=== PATIENT | female | born 1985 | race Caucasian/White ===

== ENCOUNTER → 2016-10-20 | Outpatient (CLI) | payer OTHER ==
[~2016-10-20] MED LIST: AUGM40SS PO; CEFT500T PO; DEXA4TA PO; FIBE625T PO; PERC5TAB PO; PROAAER INH; TYLE325T5 PO
--- NOTE | 2016-10-20 11:19 | REP ---
RIGHT HAND, FOUR VIEWS: HISTORY: Injury. There is no acute fracture or dislocation. The joint spaces are normal in appearance. IMPRESSION: There is no acute fracture or dislocation. Signed by Triston Juarez MD 10/20/2016 12:03 P
== END ==
LOC: M WUC 10:46
PROVIDERS: ATTEND Physician Assistant
DX: S67.21XA Crushing injury of right hand, initial encounter (principal); X58.XXXA Exposure to other specified factors, initial encounter; Y92.89 Other specified places as the place of occurrence of the external cause; Y93.89 Activity, other specified; Y99.8 Other external cause status

== ENCOUNTER 2017-03-02 12:10 | Emergency (ER) | payer OTHER ==
[~2017-03-02] VITALS: Ht 152.4 cm; Wt 66.4 kg
[2017-03-02] MEDS ORDERED: VITA1CAP40 (12:31)
[2017-03-02] MEDS ORDERED: SERT-138 (12:31)
[2017-03-02] MEDS ORDERED: HYDR50TA70 (12:31)
[2017-03-02] MEDS ORDERED: DOXY100C37 (12:31)
[2017-03-02] MEDS ORDERED: OMEP20CA3 (12:31)
[2017-03-02] MEDS ORDERED: TRAZ50TA11 (12:31)
[2017-03-02] MEDS ORDERED: KETOROLAC 30 MG/ML VIAL (J1885) IV ONE (13:30)
[2017-03-02] MEDS ORDERED: METOCLOPRAMIDE INJ 10MG/2ML VIAL (J2765) IV ONE (13:30)
[2017-03-02] MEDS ORDERED: NS 1,000 ML IV ONE (13:30)
[2017-03-02 14:41] LABS: BASO % 0.5 % (0.0-1.0); EOS # 0.3 K/mm3 (0.0-0.50); EOS % 4.4 % (0.0-3.0); LARGE UNSTAINED CELL # 0.1 K/mm3 (0.0-0.4); LARGE UNSTAINED CELL % 1.8 % (0.0-4.0); LYMPH # 1.1 K/mm3 (1.5-4.5); MEAN CORPUSCULAR HEMOGLOBIN 30.4 pg (27.0-33.0); MEAN CORPUSCULAR HGB CONC 33.8 g/dl (32.0-36.5); MEAN CORPUSCULAR VOLUME 90.1 fl (80.0-96.0); MONO # 0.4 K/mm3 (0.0-0.8); MONO % 5.5 % (0.0-5.0); NEUTROPHILS # 5.8 K/mm3 (1.8-7.7); NEUTROPHILS % 74.7 % (36.0-66.0); PLATELET COUNT, AUTOMATED 215 k/mm3 (150-450); RED CELL DISTRIBUTION WIDTH 12.8 % (11.5-14.5); WHITE BLOOD COUNT 7.8 K/mm3 (4.0-10.0)
[2017-03-02 15:12] LABS: ANION GAP 7 MEQ/L (8-16); BLOOD UREA NITROGEN 9 MG/DL (7-18); CALCIUM LEVEL 8.8 MG/DL (8.5-10.1); CARBON DIOXIDE LEVEL 26 MEQ/L (21-32); CHLORIDE LEVEL 109 MEQ/L (98-107); CREATININE FOR GFR 0.78 MG/DL (0.55-1.02); GLOMERULAR FILTRATION RATE > 60.0 (>60); GLUCOSE, FASTING 86 MG/DL (70-105); POTASSIUM SERUM 3.8 MEQ/L (3.5-5.1); SODIUM LEVEL 142 MEQ/L (136-145)
[2017-03-02 15:28] LABS: ERYTHROCYTE SEDIMENTATION RATE 19 mm/hr (0-20)
[2017-03-02 15:34] VITALS: BP 104/67
== END 2017-03-02 15:37 | disposition home or self-care (01) ==
LOC: M ED 12:10
DX: R51 Headache (principal); B34.9 Viral infection, unspecified; F99 Mental disorder, not otherwise specified; Z79.899 Other long term (current) drug therapy
CPT/HCPCS: 80048; 81001; 81025; 85025; 85652; 86140; 96374; 96375; 99283; J1885; J2765

== ENCOUNTER 2018-04-04 00:06 | Emergency (ER) | payer OTHER ==
[2018-04-04] MEDS: GI COCKTAIL 50ML BTL(HYOSCYAMINE/MAALOX/LIDOCAINE VISCOUS)(1:3:1) PO (00:37)
[2018-04-04] MEDS: methylPREDNISolone INJ 125 MG/2 ML VIAL (J2930) IM (00:40)
[2018-04-04] MEDS: IPRATROPIUM 0.5MG/ALBUTEROL 2.5MG INH SOL UD 3ML (DUONEB)(J7620) NEB (01:37)
== END 2018-04-04 01:52 | disposition home or self-care (01) ==
LOC: M ED 00:06
DX: J40 Bronchitis, not specified as acute or chronic (principal); J06.9 Acute upper respiratory infection, unspecified; J45.909 Unspecified asthma, uncomplicated; F31.9 Bipolar disorder, unspecified; K21.9 Gastro-esophageal reflux disease without esophagitis; Z79.899 Other long term (current) drug therapy
CPT/HCPCS: J2930

== ENCOUNTER 2018-09-28 13:36 | Day surgery (SDC) | payer BC ==
[~2018-09-28] VITALS: Ht 152.4 cm; Wt 69.4 kg
[~2018-09-28 13:36] MED LIST changes: +DICY10CA13 PO; +DIVA250T67 PO; +DOXY100C37; +HYDR50TA70 PO; +NS 1,000 ML IV ONE; +OMEP20CA3; +PRED20TA PO; +PROAAER10 INH; +SERT-138 PO; +TRAZ-160; +VITA50005
[2018-09-28] MEDS ORDERED: fentaNYL 100 MCG/2 ML INJECTION (J3010) As Ordered ONE (15:49)
[2018-09-28] MEDS ORDERED: LIDOCAINE 2% INJ 100 MG/5 ML SDV (FOR ANES.) As Ordered ONE (16:35)
[2018-09-28] MEDS ORDERED: MIDAZOLAM INJ 2 MG/2 ML VIAL (J2250) As Ordered ONE (16:36)
[2018-09-28] MEDS ORDERED: PROPOFOL 200 MG/20 ML VIAL As Ordered ONE (16:37)
--- NOTE | 2018-09-28 16:49 | ROOR ---
Patient Name: Vika Kaplan Procedure Date: 09/28/2018 4:33 PM Date of : 1985 Age: 32 Room: [facility] Gender: Female Note Status: Finalized Procedure: Upper GI endoscopy Indications: Failure to respond to medical treatment, Unexplained chest pain Providers: Ramiro CEDEÑO MD Referring MD: ZAC GUTIERREZ MD Requesting Provider: Medicines: Monitored Anesthesia Care Complications: No immediate complications. Procedure: Pre-Anesthesia Assessment: - The heart rate, respiratory rate, oxygen saturations, blood pressure, adequacy of pulmonary ventilation, and response to care were monitored throughout the procedure. The Endoscope was introduced through the mouth, and advanced to the second part of duodenum. The upper GI endoscopy was accomplished without difficulty. The patient tolerated the procedure well. Findings: Small Hiatal Hernia. The examined esophagus was normal. The entire examined stomach was normal. The examined duodenum was normal. Several biopsies were obtained in the proximal esophagus, in the mid esophagus and in the distal esophagus with cold forceps for evaluation of eosinophilic esophagitis. Impression: - Small Hiatal Hernia. - Normal stomach. - Normal esophagus. - Normal examined duodenum. - Several biopsies were obtained in the proximal esophagus, in the mid esophagus and in the distal esophagus. Recommendation: - Telephone endoscopist for pathology results in 2 weeks. - Observe patient's clinical course. Ramiro Cedeño MD Ramiro CEDEÑO MD 09/28/2018 4:49:12 PM This report has been signed electronically. Number of Addenda: 0 Note Initiated On: 09/28/2018 4:33 PM Estimated Blood Loss: Estimated blood loss: none.
[2018-09-28 17:27] VITALS: BP 125/81
== END 2018-09-28 17:29 | disposition home or self-care (01) ==
LOC: M OPP 13:36
PROVIDERS: ATTEND Internal Medicine Gastroenterology
DX: R07.9 Chest pain, unspecified (principal); K21.9 Gastro-esophageal reflux disease without esophagitis; K44.9 Diaphragmatic hernia without obstruction or gangrene; G43.909 Migraine, unspecified, not intractable, without status migrainosus; M79.7 Fibromyalgia; K58.9 Irritable bowel syndrome, unspecified; Z79.899 Other long term (current) drug therapy; Z83.3 Family history of diabetes mellitus; Z82.5 Family history of asthma and other chronic lower respiratory diseases
CPT/HCPCS: 43239; 88305; J2250; J3010

== ENCOUNTER 2019-04-27 21:09 | Emergency (ER) | payer BC ==
[~2019-04-27] VITALS: Ht 152.4 cm; Wt 67.7 kg
[~2019-04-27 21:09] MED LIST changes: +AMOX400S53 PO; -AUGM40SS PO; -NS 1,000 ML IV ONE; -OMEP20CA3; +OMEP20CA4; -TRAZ-160; +TRAZ-252
[2019-04-27 21:47] LABS: BASO # 0.1 10^3/uL (0.0-0.2); BASO % 0.7 % (0.0-1.0); EOS # 0.3 10^3/uL (0.0-0.5); EOS % 4.1 % (0.0-3.0); HEMOGLOBIN 14.6 g/dl (12.0-15.5); LYMPH # 2.2 10^3/uL (1.5-5.0); LYMPH % 30.4 % (24.0-44.0); MEAN CORPUSCULAR HEMOGLOBIN 30.7 pg (27.0-33.0); MEAN CORPUSCULAR HGB CONC 33.2 g/dl (32.0-36.5); MEAN CORPUSCULAR VOLUME 92.4 fl (80.0-96.0); MONO # 0.7 10^3/uL (0.0-0.8); MONO % 10.4 % (0.0-5.0); NEUTROPHILS # 3.9 10^3/uL (1.5-8.5); NEUTROPHILS % 54.1 % (36.0-66.0); PLATELET COUNT, AUTOMATED 263 10^3/uL (150-450); RED BLOOD COUNT 4.76 10^6/uL (4.00-5.40); WHITE BLOOD COUNT 7.1 10^3/uL (4.0-10.0)
[2019-04-27 22:10] LABS: ALT/SGPT 16 U/L (12-78); BILIRUBIN,DIRECT < 0.1 MG/DL (0.0-0.2); BILIRUBIN,TOTAL 0.2 MG/DL (0.2-1.0); BLOOD UREA NITROGEN 17 MG/DL (7-18); CALCIUM LEVEL 9.4 MG/DL (8.5-10.1); CARBON DIOXIDE LEVEL 28 MEQ/L (21-32); CHLORIDE LEVEL 106 MEQ/L (98-107); CREATININE FOR GFR 0.99 MG/DL (0.55-1.30); GLOMERULAR FILTRATION RATE > 60.0 (>60); GLUCOSE, FASTING 86 MG/DL (70-100); LIPASE 133 U/L (73-393); POTASSIUM SERUM 3.6 MEQ/L (3.5-5.1); SODIUM LEVEL 141 MEQ/L (136-145); TOTAL PROTEIN 8.1 GM/DL (6.4-8.2)
[2019-04-27] MEDS ORDERED: ISOVUE-370 76% 100ML VIAL (Q9967) As Ordered ONE (22:12)
[2019-04-27] MEDS ORDERED: KETOROLAC 30 MG/ML VIAL (J1885) IV ONE (22:15)
[2019-04-27] MEDS ORDERED: NS 1,000 ML IV ONE (22:15)
[2019-04-27] MEDS ORDERED: ONDANSETRON 4MG/2ML VIAL (J2405) IV ONE (22:15)
[2019-04-28] MEDS ORDERED: METOCLOPRAMIDE INJ 10MG/2ML VIAL (J2765) IV ONE
[2019-04-28] MEDS ORDERED: MORPHINE 4 MG/ML 1ML VIAL/SYRINGE (J2270) IV ONE
--- NOTE | 2019-04-28 00:15 | REPVR ---
EXAM: CT Abdomen and Pelvis With Contrast EXAM DATE/TIME: 04/27/2019 10:31 PM CLINICAL HISTORY: 33 years old, female; Abdominal pain; Localized; Lower; Additional info: Lower abd pain TECHNIQUE: Imaging protocol: Computed tomography of the abdomen and pelvis with intravenous contrast. Axial, coronal and sagittal reformatted images were created and reviewed. Radiation optimization: All CT scans at this facility use at least one of these dose optimization techniques: automated exposure control; mA and/or kV adjustment per patient size (includes targeted exams where dose is matched to clinical indication); or iterative reconstruction. Contrast material: ISOVUE 370; Contrast volume: 100 ml; Contrast route: IV; COMPARISON: No relevant prior studies available. FINDINGS: Liver: Unremarkable. Gallbladder and bile ducts: No radiodense gallstones. No biliary ductal dilatation. Pancreas: Unremarkable. Spleen: Unremarkable. Adrenals: Unremarkable. Kidneys and ureters: No mass. No radiodense calculi. No hydronephrosis. Stomach and bowel: No bowel wall thickening. No obstruction. No pneumatosis. Appendix: Normal. Intraperitoneal space: No free fluid. No organized fluid collection. No free air. Vasculature: Unremarkable. No aneurysm. Lymph nodes: No pathologically enlarged lymph nodes. Bladder: Unremarkable. Reproductive: Unremarkable. Bones/joints: No acute osseous abnormality. Soft tissues: Unremarkable. IMPRESSION: No CT evidence of acute intra-abdominal or pelvic pathology. Electronically signed by: Chaparro Sanchez On 04/28/2019 00:14:19 AM
[2019-04-28] MEDS ORDERED: HYOS0.1258 PO (00:37)
[2019-04-28] MEDS ORDERED: ONDA4TAB6 PO (00:37)
[2019-04-28 01:01] VITALS: BP 110/63
== END 2019-04-28 01:16 | disposition home or self-care (01) ==
LOC: M ED 21:09
DX: R10.31 Right lower quadrant pain (principal); R10.32 Left lower quadrant pain; R11.2 Nausea with vomiting, unspecified; R51 Headache; J45.909 Unspecified asthma, uncomplicated; K58.9 Irritable bowel syndrome, unspecified; F41.9 Anxiety disorder, unspecified; Z83.79 Family history of other diseases of the digestive system
CPT/HCPCS: 36415; 74177; 80048; 80076; 81001; 83690; 84702; 85025; 96361; 96374; 96375; 99284; J1885; J2270; J2405; J2765; Q9967

== ENCOUNTER → 2019-05-08 | Outpatient (REF) | payer BC ==
[~2019-05-08] MED LIST changes: +HYOS0.1258 PO; +ONDA4TAB6 PO; +REGL5TAB2 PO
== END ==
LOC: M LAB REF 13:30
PROVIDERS: ATTEND Internal Medicine
DX: A09 Infectious gastroenteritis and colitis, unspecified (principal)

== ENCOUNTER 2019-05-11 20:02 | Emergency (ER) | payer BC ==
[~2019-05-11] VITALS: Ht 152.4 cm; Wt 68.2 kg
[~2019-05-11 20:02] MED LIST changes: -REGL5TAB2 PO
[2019-05-11 20:37] LABS: BASO % 0.4 % (0.0-1.0); EOS # 0.1 10^3/uL (0.0-0.5); EOS % 1.4 % (0.0-3.0); HEMATOCRIT 44.1 % (36.0-47.0); HEMOGLOBIN 14.8 g/dl (12.0-15.5); LYMPH # 1.3 10^3/uL (1.5-5.0); LYMPH % 13.4 % (24.0-44.0); MEAN CORPUSCULAR HEMOGLOBIN 31.2 pg (27.0-33.0); MEAN CORPUSCULAR HGB CONC 33.6 g/dl (32.0-36.5); MONO # 0.8 10^3/uL (0.0-0.8); MONO % 8.2 % (0.0-5.0); NEUTROPHILS # 7.5 10^3/uL (1.5-8.5); NEUTROPHILS % 76.3 % (36.0-66.0); PLATELET COUNT, AUTOMATED 260 10^3/uL (150-450); RED BLOOD COUNT 4.74 10^6/uL (4.00-5.40); WHITE BLOOD COUNT 9.8 10^3/uL (4.0-10.0)
[2019-05-11 21:13] LABS: ALBUMIN 4.1 GM/DL (3.2-5.2); ALT/SGPT 17 U/L (12-78); BILIRUBIN,DIRECT 0.1 MG/DL (0.0-0.2); BILIRUBIN,TOTAL 0.4 MG/DL (0.2-1.0); BLOOD UREA NITROGEN 14 MG/DL (7-18); CALCIUM LEVEL 9.8 MG/DL (8.5-10.1); CARBON DIOXIDE LEVEL 25 MEQ/L (21-32); CHLORIDE LEVEL 108 MEQ/L (98-107); CREATININE FOR GFR 0.87 MG/DL (0.55-1.30); GLOMERULAR FILTRATION RATE > 60.0 (>60); GLUCOSE, FASTING 90 MG/DL (70-100); LIPASE 113 U/L (73-393); SODIUM LEVEL 140 MEQ/L (136-145); TOTAL PROTEIN 7.7 GM/DL (6.4-8.2)
[2019-05-11] MEDS ORDERED: DICYCLOMINE 10 MG CAP PO ONE (21:45)
[2019-05-11] MEDS ORDERED: METOCLOPRAMIDE INJ 10MG/2ML VIAL (J2765) IV ONE (21:45)
[2019-05-11] MEDS ORDERED: diphenhydrAMINE INJ 50MG/ML VIAL (J1200) IV ONE (21:45)
[2019-05-11] MEDS ORDERED: NS 1,000 ML IV ONE (21:45)
[2019-05-11] MEDS ORDERED: KETOROLAC 30 MG/ML VIAL (J1885) IV ONE (21:45)
[2019-05-11] MEDS ORDERED: REGL5TAB2 PO (23:18)
[2019-05-11] MEDS ORDERED: DICY10CA13 PO (23:18)
[2019-05-11 23:25] VITALS: BP 133/81
== END 2019-05-11 23:28 | disposition home or self-care (01) ==
LOC: M ED 20:02
DX: K58.9 Irritable bowel syndrome, unspecified (principal); R51 Headache; J45.909 Unspecified asthma, uncomplicated; F41.9 Anxiety disorder, unspecified; Z79.899 Other long term (current) drug therapy
CPT/HCPCS: 80048; 80076; 81001; 83690; 85025; 96361; 96374; 96375; 99284; J1200; J1885; J2765

== ENCOUNTER → 2019-07-04 | Outpatient (CLI) | payer BC ==
[~2019-07-04] MED LIST changes: +REGL5TAB2 PO
--- NOTE | 2019-07-09 10:11 | REP ---
KUB ABDOMEN AND PELVIS: KUB film of the abdomen and pelvis is performed 5 days following ingestion of SITZMARKS capsule. There are five remaining ring markers in the pelvis. This is compatible with grossly normal colonic transit. Bowel gas pattern is normal. There are also a several tiny phleboliths in the pelvis. IMPRESSION: Five ring Sitz markers remain in the pelvis. This is compatible with grossly normal colonic transit. Electronically Signed by Juancho Brooks MD 07/09/2019 10:12 A
== END ==
LOC: M RAD 12:16
PROVIDERS: ATTEND Internal Medicine Gastroenterology
DX: K58.2 Mixed irritable bowel syndrome (principal)

== ENCOUNTER → 2019-09-11 | Outpatient (REF) | payer BC ==
[~2019-09-11] MED LIST changes: +CICL8KIT3 EX; +CVS50CAP PO; +OMEP1CAP73; -OMEP20CA4
== END ==
LOC: M SFHCWAGY 17:23
PROVIDERS: ATTEND Nurse Practitioner Women's Health
DX: Z12.4 Encounter for screening for malignant neoplasm of cervix (principal)

== ENCOUNTER 2019-09-19 07:29 | Day surgery (SDC) | payer BC ==
[~2019-09-19] VITALS: Ht 152.4 cm; Wt 69.4 kg
[~2019-09-19 07:29] MED LIST changes: +NS 1,000 ML IV ONE
[2019-09-19] MEDS ORDERED: propofoL 200 MG/20 ML VIAL As Ordered ONE (09:20)
[2019-09-19] MEDS ORDERED: LIDOCAINE 2% INJ 100 MG/5 ML SDV (FOR ANES.) As Ordered ONE (09:20)
--- NOTE | 2019-09-19 09:25 | ROOR ---
Patient Name: Vika Kaplan Procedure Date: 09/19/2019 8:59 AM Date of : 1985 Age: 33 Room: [facility] Gender: Female Note Status: Finalized Procedure: Colonoscopy Indications: Generalized abdominal pain, Mixed irritable bowel syndrome, Change in bowel habits Providers: Ramiro CEDEÑO MD Referring MD: ZAC GUTIERREZ MD Requesting Provider: Medicines: Monitored Anesthesia Care Complications: No immediate complications. Procedure: Pre-Anesthesia Assessment: - The heart rate, respiratory rate, oxygen saturations, blood pressure, adequacy of pulmonary ventilation, and response to care were monitored throughout the procedure. The Colonoscope was introduced through the anus and advanced to the terminal ileum, with identification of the appendiceal orifice and IC valve. The colonoscopy was performed without difficulty. The patient tolerated the procedure well. The quality of the bowel preparation was adequate and fair. Findings: The digital rectal exam findings include decreased sphincter tone. A 4 mm polyp was found in the distal sigmoid colon. The polyp was sessile. The polyp was removed with a cold snare. Resection and retrieval were complete. To prevent bleeding after the polypectomy, one hemostatic clip was successfully placed. The exam was otherwise normal throughout the examined colon. The terminal ileum appeared normal. Impression: - Preparation of the colon was fair. - Decreased sphincter tone found on digital rectal exam. - One 4 mm polyp in the distal sigmoid colon, removed with a cold snare. Resected and retrieved. Clip was placed. - The colon is otherwise normal. - The examined portion of the ileum is normal. Recommendation: - Continue present medications. - Use fiber, for example Citrucel, Fibercon, Konsyl or Metamucil. Ramiro Cedeño MD Ramiro CEDEÑO MD 09/19/2019 9:24:38 AM Electronically signed by Ramiro CEDEÑO MD Number of Addenda: 0 Note Initiated On: 09/19/2019 8:59 AM Estimated Blood Loss: Estimated blood loss: none.
[2019-09-19 09:40] VITALS: BP 93/50
== END 2019-09-19 09:50 | disposition home or self-care (01) ==
LOC: M OPP 07:29
PROVIDERS: ATTEND Internal Medicine Gastroenterology
DX: R10.84 Generalized abdominal pain (principal); K58.2 Mixed irritable bowel syndrome; R19.4 Change in bowel habit; K62.89 Other specified diseases of anus and rectum; K63.5 Polyp of colon; G47.9 Sleep disorder, unspecified; Z87.898 Personal history of other specified conditions; R14.0 Abdominal distension (gaseous); R19.7 Diarrhea, unspecified; R12 Heartburn; M54.2 Cervicalgia; M79.7 Fibromyalgia; R11.2 Nausea with vomiting, unspecified; F41.9 Anxiety disorder, unspecified; F32.9 Major depressive disorder, single episode, unspecified; G43.909 Migraine, unspecified, not intractable, without status migrainosus; J45.909 Unspecified asthma, uncomplicated; R06.83 Snoring; Z79.899 Other long term (current) drug therapy; Z88.8 Allergy status to other drugs, medicaments and biological substances

== ENCOUNTER → 2019-10-23 | Outpatient (CLI) | payer BC ==
[~2019-10-23] MED LIST changes: -NS 1,000 ML IV ONE
--- NOTE | 2019-10-25 12:48 | SLEEPCENT ---
DATE OF PROCEDURE: 10/23/2019 ORDERED BY: ZE Butt Nocturnal polysomnography was performed for evaluation of sleep physiology in this patient with a history of excessive somnolence, snoring, morning headaches and nonrestorative sleep. 7 hours and 48 minutes of data were reviewed. There were 423.5 minutes of sleep identified. Sleep latency was mildly prolonged at 14 minutes. REM latency was mildly prolonged at 139 minutes. Sleep architecture was good with four REM cycles. Overall sleep efficiency was 95.4%. The electrocardiogram showed a sinus rhythm with an average heart rate of 60 beats per minute. EEG showed alpha intrusion into non-REM stages. No focal events were seen. There were only 23 respiratory events identified of 10 seconds in duration or greater for an apnea-hypopnea index within normal limits of 3.3. The events that were seen were more frequent in the supine posture. Snoring was noted over much of the study. The respiratory related arousals occurred 4.4 times per hour. There were no significant oxygen desaturations and no frequent arousals from limb movements. IMPRESSION: Normal nocturnal polysomnography with snoring. RECOMMENDATION: Sleep position retraining for avoidance of the supine posture may help reduce sleep fragmentation from the snoring problem.
== END ==
LOC: M SLEEP 19:34
PROVIDERS: ATTEND Nurse Practitioner Family
DX: R06.83 Snoring (principal)

== ENCOUNTER → 2019-10-25 | Outpatient (CLI) | payer BC ==
--- NOTE | 2019-10-25 14:35 | REP ---
REASON: Menorrhagia. COMPARISON: None. Transvesical and transvaginal imaging was obtained. Patient has undergone endometrial ablation 11/08/2019. The uterus measures 7.8 x 3.3 x 3.8 cm. The parenchymal echo pattern is within normal limits. The endometrial echo complex measures 9 mm in thickness and has an unremarkable appearance. The right ovary measures 2.9 x 1.8 x 2.1 cm and is within normal limits with an RI of 0.53. The left ovary measures 2.7 x 1.7 x 2.6 cm and is within normal limits with an RI of 0.67. There is a small amount of fluid in the endocervical canal. Urinary bladder measures 7 x 5 x 2 cm. IMPRESSION: Pelvic ultrasonography is within normal limits.
== END ==
LOC: M WHC 10:35
PROVIDERS: ATTEND Specialist
DX: N92.0 Excessive and frequent menstruation with regular cycle (principal)

== ENCOUNTER → 2019-12-30 | Outpatient (CLI) | payer BC ==
[~2019-12-30] MED LIST changes: +AMIT50TA PO; +IBUP-1022 PO; +OXYC1TAB23 PO
== END ==
LOC: M LABSMTC 10:20
PROVIDERS: ATTEND Anesthesiology
DX: Z01.818 Encounter for other preprocedural examination (principal); Z11.59 Encounter for screening for other viral diseases
CPT/HCPCS: C9803; U0002

== ENCOUNTER 2020-01-01 08:50 | Day surgery (SDC) | payer BC ==
[~2020-01-01] VITALS: Ht 152.4 cm; Wt 71.2 kg
[~2020-01-01 08:50] MED LIST changes: -AMIT50TA PO; -IBUP-1022 PO; +LR 1,000 ML IV ONE; -OXYC1TAB23 PO
[2020-01-01] MEDS ORDERED: AMIT50TA PO (09:14)
[2020-01-01 09:19] LABS: HEMATOCRIT 45.8 % (36.0-47.0); MEAN CORPUSCULAR HEMOGLOBIN 30.1 pg (27.0-33.0); MEAN CORPUSCULAR HGB CONC 32.8 g/dl (32.0-36.5); PLATELET COUNT, AUTOMATED 248 10^3/uL (150-450); RED BLOOD COUNT 4.98 10^6/uL (4.00-5.40); WHITE BLOOD COUNT 5.7 10^3/uL (4.0-10.0)
[2020-01-01] MEDS ORDERED: fentaNYL 250 MCG/5 ML INJECTION (J3010) As Ordered ONE (09:26)
[2020-01-01] MEDS ORDERED: MIDAZOLAM INJ 2MG/2ML VIAL (J2250 PER 1MG) As Ordered ONE (09:27)
[2020-01-01] MEDS ORDERED: propofoL 200 MG/20 ML VIAL As Ordered ONE (09:27)
[2020-01-01] MEDS ORDERED: LIDOCAINE 2% 100MG/5ML SDV (FOR ANES.) As Ordered ONE (09:27)
[2020-01-01] MEDS ORDERED: KETOROLAC 60 MG/2 ML VIAL As Ordered ONE (09:27)
[2020-01-01] MEDS ORDERED: dexameTHASONE 4 MG/ML 1ML VIAL (J1100 PER 1MG) As Ordered ONE (09:27)
[2020-01-01] MEDS ORDERED: ONDANSETRON 4MG/2ML VIAL As Ordered ONE (09:27)
[2020-01-01] MEDS ORDERED: ACETAMINOPHEN 1000MG 100ML IV BTL (OFIRMEV) (J0131 PER 10MG) As Ordered ONE (09:32)
[2020-01-01] MEDS ORDERED: oxyCODONE 5MG TAB PO PRN (11:30)
[2020-01-01] MEDS ORDERED: ONDANSETRON 4MG/2ML VIAL IV PRN (11:30)
[2020-01-01] MEDS ORDERED: PERCOCET 5MG/325MG TAB PO PRN (11:30)
[2020-01-01] MEDS ORDERED: fentaNYL 100 MCG/2 ML INJECTION (J3010) IV PRN (11:30)
[2020-01-01] MEDS ORDERED: LR 1,000 ML IV SCH (11:30)
[2020-01-01] MEDS ORDERED: OXYC1TAB23 PO (12:43)
[2020-01-01] MEDS ORDERED: IBUP-1022 PO (12:44)
[2020-01-01 12:57] VITALS: BP 115/78
--- NOTE | 2020-01-03 21:48 | RO ---
DATE OF PROCEDURE: 01/01/2020 PREPROCEDURE DIAGNOSIS: Menorrhagia. POSTPROCEDURE DIAGNOSIS: Menorrhagia. PROCEDURE: Hysteroscopy, dilation and curettage, NovaSure endometrial ablation. SURGEON: Triston Gutierrez MD PROFILING MACHINE SET UP OPERATOR: ANESTHESIA: General endotracheal. ESTIMATED BLOOD LOSS: 10 mL. URINE OUTPUT: 100 mL. FINDINGS: Normal appearing endometrial cavity. DESCRIPTION OF PROCEDURE: The patient was taken to the operating room where general endotracheal anesthesia was induced. She was prepped and draped in a sterile fashion in the dorsal lithotomy position. The bladder was emptied with a catheter. The anterior lip of the cervix was grasped with a tenaculum. Cervix was dilated with tapered dilators. Diagnostic hysteroscope using normal saline as a distention medium was placed through the internal os. Visualization of the endometrial cavity revealed the findings noted above. The hysteroscope was removed. Sharp curettage was performed. Specimen was sent for pathology. The NovaSure device was assembled and found to be in working order. Endometrial cavity length 4.0 cm. The NovaSure device was inserted. The cavity width was calculated at 2.6 cm. Total power setting was 57 naranjo. Successful cavity assessment was performed. Coagulation was initiated. Total coagulation time was 1 minute 16 seconds. The device was removed. The hysteroscope was placed back in the endometrium. An excellent coagulation effect was noted throughout the endometrium. There was no evidence of injury to the uterus. Sponge and instrument counts were correct.
== END 2020-01-01 13:00 | disposition home or self-care (01) ==
LOC: M SDC 08:50
PROVIDERS: ATTEND Specialist
DX: N85.00 Endometrial hyperplasia, unspecified (principal); F41.9 Anxiety disorder, unspecified; K58.9 Irritable bowel syndrome, unspecified; M54.5 Low back pain; Z86.61 Personal history of infections of the central nervous system; M79.7 Fibromyalgia; F32.9 Major depressive disorder, single episode, unspecified; G43.909 Migraine, unspecified, not intractable, without status migrainosus; J45.909 Unspecified asthma, uncomplicated; R06.83 Snoring; Z79.899 Other long term (current) drug therapy; Z88.8 Allergy status to other drugs, medicaments and biological substances; Z11.59 Encounter for screening for other viral diseases
CPT/HCPCS: 36415; 58563; 81025; 85027; 88305; J0131; J1100; J1885; J2250; J2405; J3010

== ENCOUNTER → 2020-08-26 | Outpatient (CLI) | payer BC ==
[~2020-08-26] MED LIST changes: +ACET-838 PO; +AMIT50TA PO; +CYMB60CA3 PO; +FAMO20TA PO; +IBUP-1022 PO; -LR 1,000 ML IV ONE; +OMEP1CAP73 PO; +OXYC1TAB23 PO
--- NOTE | 2020-08-27 19:14 | ECGEPIP ---
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
== END ==
LOC: M EKG 08:58
PROVIDERS: ATTEND Anesthesiology
DX: Z01.818 Encounter for other preprocedural examination (principal)

== ENCOUNTER → 2020-08-27 | Outpatient (CLI) | payer BC | LOC: M LABSMTC 10:14 | PROVIDERS: ATTEND Anesthesiology | DX: Z01.812 Encounter for preprocedural laboratory examination (principal); Z20.822 Contact with and (suspected) exposure to COVID-19 ==

== ENCOUNTER 2020-09-01 07:32 | Day surgery (SDC) | payer BC ==
[~2020-09-01] VITALS: Ht 152.4 cm; Wt 78.9 kg
[~2020-09-01 07:32] MED LIST changes: +LR 1,000 ML IV ONE
--- OUTSIDE RECORDS SUMMARY | 2020-09-01 07:36 | CCD | Continuity of Care Document ---
Author Author Vika ALAS DPDiana Organization Unknown Address [address] [place] [address], [facility] [address] [place] [address] Phone [phone] Care Team Providers Care Lead Etl Developer Name Role Phone Shukri Mejia M.D.M [phone] Problems Active Problems Provider Date Tinea pedis Andrei lAas DPM Onset: 07/14/2019 Onychomycosis Andrei Alas DPM Onset: 08/08/2019 Social History Type Date Description Comments Sex Unknown ETOH Use Rarely consumes alcohol Tobacco Use Start: Unknown Patient has never smoked Allergies, Adverse Reactions, Alerts Active Allergies Reaction Severity Comments Date Terbinafine rash 07/29/2019 Inactive Allergies NKDA 07/04/2019 Medications Active Medications SIG Qnty Indications Ordering Provide r Date Jublia 10% Solution apply to affected toenails daily 8ml Andrei Alas DPM 02/20/2020 Benadryl Allergy 25mg Tablets 1 tablet by mouth every 6 hours as needed for itching 30tabs Andrei Alas DPM 07/29/2019 Ciclopirox 8% Solution apply to affected nail(s) daily 6.6units Andrei Alas DPM 07/29/2019 Augmented Betamethasone Dipropionate 0.05% Gel apply between toes daily 50units Andrei Alas DPM 07/04/2019 Ketoconazole Unknown Albuterol Sulfate HFA Unknown Immunizations Description No Information Available Vital Signs Date Vital Result Comment 07/04/2019 1:13pm Height 59 inches 4'11" Weight 154.00 lb BP Systolic 118 mmHg BP Diastolic 78 mmHg Heart Rate 78 /min BMI (Body Mass Index) 31.1 kg/m2 Results Description No Information Available Procedures Description No Information Available Medical Devices Description No Information Available Encounters Type Date Location Provider Dx Diagnosis Office Visit 05/22/2020 10:00a [facility] Andrei Alas DPM B35.1 Tinea unguium Assessments Date Code Description Provider 05/22/2020 B35.1 Tinea unguium Andrei Alas DPM Plan of Treatment Future Appointment(s):* 11/23/2020 10:00 am - Andrei Alas DPM at [facility] Functional Status Description No Information Available Mental Status Description No Information Available Referrals Description No Information Available
--- OUTSIDE RECORDS SUMMARY | 2020-09-01 07:37 | CCD | Continuity of Care Document ---
Author Author Vika MEJIA M.D. Organization Unknown Address [address] [place] [address] Phone [phone] Problems Active Problems Provider Date Anxiety Shukri Mejia M.D. Onset: 6 Obesity Shukri Mejia M.D. Onset: 8 Social History Type Date Description Comments Sex Unknown Cigarette Use Denies Cigarette Smoking ETOH Use Consumes 1-2 beers per week Recreational Drug Use Denies Drug Use Tobacco Use Start: Unknown Patient has never smoked Allergies, Adverse Reactions, Alerts Description No Known Drug Allergies Medications Active Medications SIG Qnty Indications Ordering Provide r Date Famotidine 20mg Tablets 1 by mouth at at bedtime 90taShukri Nelson M.D. 05/20/20 20 [address]ep[address]ole Sodium [address] Take 1 Tablet By Mouth Every Day 90tabs Shukri Mejia M.D . 03/10/2020 Duloxetine HCL 60mg Caps DR Part 1 by mouth every day 90Shukri Bolaños M.D. 03/09/20 20 Albuterol Sulfate HFA 108(90Base) mcg/Act Aerosol Inhale 2 Puffs By Mouth Every 4 Hours as Needed For Sh ortness Of Breath 42.5units Shukri Mejia M.D. 06/28/2019 Docusate Sodium 100mg Capsules as directed at Ramiro Duarte M.D. History Medications Dexilant 60mg Capsules DR 1 by mouth every day Shukri Singh M.D. 03/09/20 20 - 03/10/2020 Immunizations CPT Code Status Date Vaccine Lot # [id number] Refused 07/22/2019 Influenza Virus Vaccine, Quadrivalent, Slit Virus, Im Use 3Y & Up [id number] Refused 06/10/2016 Influenza Virus Vaccine, Quadrivalent, Slit Virus, Im Use 3Y & Up Vital Signs Date Vital Result Comment 05/11/2020 11:16am BP Systolic 120 mmHg BP Diastolic 80 mmHg Body Temperature 98.6 F Heart Rate 76 /min Respiratory Rate 12 /min Height 59 inches 4'11" Weight 167.00 lb [place] Body Weight 100 lb BMI (Body Mass Index) 33.7 kg/m2 O2 % BldC Oximetry 97 % 03/09/2020 11:18am BP Systolic 120 mmHg BP Diastolic 60 mmHg Body Temperature 97.5 F Heart Rate 80 /min Respiratory Rate 16 /min Height 59 inches 4'11" Weight 159.00 lb [place] Body Weight 100 lb BMI (Body Mass Index) 32.1 kg/m2 O2 % BldC Oximetry 98 % Results Description No Information Available Procedures Description No Information Available Medical Devices Description No Information Available Encounters Type Date Location Provider Dx Diagnosis Office Visit 07/21/2020 1:00p [facility] Shukri Mejia M. D. R05 Cough Office Visit 05/11/2020 11:00a [facility] Shukri Mejia M. D. K21.9 Gastro-esophageal reflux disease without esophagitis G43.909 Migraine, unsp, not intracta ble, without status migrainosus M79.7 Fibromyalgia Office Visit 03/09/2020 11:00a [facility] Shukri Mejia M. D. F41.9 Anxiety disorder, unspecified K21.9 Gastro-esophageal reflux dis ease without esophagitis Office Visit 01/27/2020 11:30a [facility] Shukri Mejia M. D. G43.909 Migraine, unsp, not intractable, without status migrainosus M79.7 Fibromyalgia Assessments Date Code Description Provider 07/21/2020 R05 Cough Shukri Mejia M.D. 05/11/2020 K21.9 Gastro-esophageal reflux disease without esophagitis Shukri Mejia M.D. 05/11/2020 G43.909 Migraine, unspecified, not intra ctable, without status migra Shukri Mjeia M.D. 05/11/2020 M79.7 Fibromyalgia Shukri Mejia M.D. 03/09/2020 F41.9 Anxiety disorder, unspecified Mi Shukri pena M.D. 03/09/2020 K21.9 Gastro-esophageal reflux disease without esophagitis Shukri Mejia M.D. 01/27/2020 G43.909 Migraine, unspecified, not intra ctable, without status migra Shukri Mejia M.D. 01/27/2020 M79.7 Fibromyalgia Shukri Mejia M.D. Plan of Treatment Future Appointment(s):* 11/09/2020 10:20 am - Shukri Mejia M.D. at [facility] Functional Status Description No Information Available Mental Status Description No Information Available Referrals Refer to Reason for Referral Status Appt Date [facility] chronic cough, eval and rx Cr eated [address] [facility] [address] [place] [address] [phone] Clarissa Rdz migraines- eval and rx Sent 05/26/[address] [place] [address] [facility] [address] [address] [phone]
--- OUTSIDE RECORDS SUMMARY | 2020-09-01 07:37 | CCD | Continuity of Care Document ---
Author Author Vika BOWDEN Organization Unknown Address [address] [place] [address] Phone [phone] Care Team Providers Care Hazard Mitigation Officer Name Role Phone Shukri Mejia M.D. AUTM [phone] Problems Active Problems Provider Date Chronic intractable migraine without aura Clarissa Rdz M.D. Onset: 05/26/2020 Chronic tension-type headache Clarissa Rdz M.D. Onset: Neck pain Clarissa Rdz M.D. Onset: 05/26/2020 Spondylolysis of cervical spine Clarisas Rdz M.D. Onset: 1 Low back pain Clarissa Rdz M.D. Onset: 05/26/2020 Spondylolysis Clarissa Rdz M.D. Onset: 05/26/2020 Disorders of initiating and maintaining sleep Zoya Bowden Onset: 05/26/2020 Skin sensation disturbance Clarissa Rdz M.D. Onset: 2019 Abnormal reflex Clarissa Rdz M.D. Onset: 05/26/2020 Social History Type Date Description Comments Sex Unknown Tobacco Use Start: Unknown Patient has never smoked Allergies, Adverse Reactions, Alerts Description No Known Drug Allergies Medications Active Medications SIG Qnty Indications Ordering Provide r Date Topiramate 50mg Tablets Take 1/2 Tablet By Mouth AT Bedtime For 1 Week Then 1 Tablet AT Bedtime For 1 Week Then 2 Tablets AT Bedtime For Final Dose 159tabs Clarissa Rdz M.D. 05/26 Alprazolam 0.5mg Tablets 1 tab by mouth half an hour before mri scan. may repeat once if needed. 2tase Rdz M.D. 05/26/2020 Sumatriptan Succinate 100mg Tablet s half or 1 tab by mouth onset of headache, may repeat once after 2 hrs. 9tabs Clarissa Ali, M.D. 05/26/2020 Ibuprofen 800mg Tablets 1 by mouth twice a day as needed for severe headaches 10taDiana Mayo 05/26/2020 Immunizations Description No Information Available Vital Signs Date Vital Result Comment 05/26/2020 9:28am BP Systolic 110 mmHg BP Diastolic 70 mmHg Heart Rate 82 /min Respiratory Rate 14 /min Height 60 inches 5'0" Weight 140.00 lb BMI (Body Mass Index) 27.3 kg/m2 [place] Body Weight 100 lb Results Description No Information Available Procedures Description No Information Available Medical Devices Description No Information Available Encounters Type Date Location Provider Dx Diagnosis Office Visit 05/26/2020 9:00a [facility] [place] Zoya Bowden G43.719 Chronic migraine w/o aura, intractable, w/o stat migr G44.221 Chronic tension-type headach e, intractable M54.2 Cervicalgia M43.02 Spondylolysis, cervical gume on M54.5 Low back pain M43.06 Spondylolysis, lumbar region F51.01 Primary insomnia R29.2 Abnormal reflex R20.0 Anesthesia of skin Assessments Date Code Description Provider 05/26/2020 G43.719 Chronic migraine wit hout aura, intractable, without status migrainosus Clarissa Rdz M.D. 05/26/2020 G44.221 Chronic tension-type headache, i ntractable Clarissa Rdz M.D. 05/26/2020 M54.2 Cervicalgia Clarissa Rdz M.D. 05/26/2020 M43.02 Spondylolysis, cervical region M bandar Rdz M.D. 05/26/2020 M54.5 Low back pain Clarissa Rdz M.D. 05/26/2020 M43.06 Spondylolysis, lumbar region Isaiah Rdz M.D. 05/26/2020 F51.01 Primary insomnia Sy Bowden 05/26/2020 R29.2 Abnormal reflex Clarissa Rdz M.D. 05/26/2020 R20.0 Anesthesia of skin Diana Bowden Plan of Treatment Future Appointment(s):* 07/28/2020 2:15 pm - Clarissa Rdz M.D. at Main office [facility] Functional Status Description No Information Available Mental Status Description No Information Available Referrals Description No Information Available
--- OUTSIDE RECORDS SUMMARY | 2020-09-01 07:37 | CCD | Continuity of Care Document ---
Author Author Vika RDZ M.D. Organization Unknown Address [address] [place] [address] Phone [phone] Care Team Providers Care Leaf Stripper Name Role Phone Shukri Mejia M.D. AUTM [phone] Problems Active Problems Provider Date Chronic intractable migraine without aura Clarissa Rdz M.D. Onset: 05/26/2020 Chronic tension-type headache Clarissa Rdz M.D. Onset: Neck pain Clarissa Rdz M.D. Onset: 05/26/2020 Spondylolysis of cervical spine Clarissa Rdz M.D. Onset: Low back pain Clarissa Rdz M.D. Onset: 05/26/2020 Spondylolysis Clarissa Rdz M.D. Onset: 05/26/2020 Disorders of initiating and maintaining sleep Zoya Bowden Onset: 05/26/2020 Abnormal reflex Clarissa Rdz M.D. Onset: 05/26/2020 Skin sensation disturbance Clarissa Rdz M.D. Onset: 2019 Migraine with typical aura Clarissa Rdz M.D. Onset: 2019 Social History Type Date Description Comments Sex [...] headache, may repeat once after 2 hrs. 9andrae Rdz M.D. 05/26/2020 Ibuprofen 800mg Tablets 1 by mouth twice a day as needed for severe headaches 10Diana Smith 05/26/2020 Immunizations Description No Information Available Vital Signs Date Vital Result Comment 05/26/2020 9:28am BP Systolic 110 mmHg BP Diastolic 70 mmHg Heart Rate 82 /min Respiratory Rate 14 /min Height 60 inches 5'0" Weight 140.00 lb BMI (Body Mass Index) 27.3 kg/m2 [place] Body Weight 100 lb Results Description No Information Available Procedures Date Code Description Status 06/16/2020 71449 MRI Spine Cervical W/O Contrast Completed 06/16/2020 16883 MRI Spine Cervical W/O Contrast Completed 06/16/2020 82912 MRI Brain W/O Contrast Completed 06/16/2020 53213 MRI Brain W/O Contrast Completed Medical Devices Description No Information Available Encounters Type Date Location Provider Dx Diagnosis Office Visit 07/28/2020 2:[place]p [place] G43.719 Chronic migraine w/o aura, intractable, w/o stat migr G44.221 Chronic tension-type headach e, intractable G43.109 Migraine with aura, not intr actable, w/o status migrainosus M54.2 Cervicalgia M43.02 Spondylolysis, cervical gume on Office Visit 05/26/2020 9:00a [place] G43.719 Chronic migraine w/o aura, intractable, w/o stat migr G44.221 Chronic tension-type headach e, intractable M54.2 Cervicalgia M43.02 Spondylolysis, cervical gume on M54.5 Low back pain M43.06 Spondylolysis, lumbar region F51.01 Primary insomnia R29.2 Abnormal reflex R20.0 Anesthesia of skin Assessments Date Code Description Provider 07/28/2020 G43.719 Chronic migraine wit hout aura, intractable, without status migrainosus Clarissa Rdz M.D. 07/28/2020 G44.221 Chronic tension-type headache, i ntractable Clarissa Rdz M.D. 07/28/2020 G43.109 Migraine with aura, not intractable, without status migrainosus Clarissa Rdz M.D. 07/28/2020 M54.2 Cervicalgia Clarissa Rdz M.D. 07/28/2020 M43.02 Spondylolysis, cervical region Diana Rdz M.D. 06/16/2020 G43.719 Chronic migraine wit hout aura, intractable, without status migrainosus Anu Dagmar, ZoyaDTushar 06/16/2020 G43.719 Chronic migraine wit hout aura, intractable, without status migrainosus MRI 06/16/2020 R29.2 Abnormal reflex Anu Dagmar, ZoyaD Tushar 06/16/2020 R29.2 Abnormal reflex MRI 06/16/2020 R20.0 Anesthesia of skin Anu Dagmar, ZoyaDTushar 06/16/2020 R20.0 Anesthesia of skin MRI 06/16/2020 M54.2 Cervicalgia Anu Dagmar, Sy Finley 06/16/2020 M54.2 Cervicalgia MRI 05/26/2020 G43.719 Chronic migraine wit hout aura, intractable, without status migrainosus Clarissa Rdz M.D. 05/26/2020 G44.221 Chronic tension-type headache, i ntractable Clarissa Rdz M.D. 05/26/2020 M54.2 Cervicalgia Clarissa Rdz M.D. 05/26/2020 M43.02 Spondylolysis, cervical region Diana Rdz M.D. 05/26/2020 M54.5 Low back pain Clarissa Rdz M.D. 05/26/2020 M43.06 Spondylolysis, lumbar region Isaiah Rdz M.D. 05/26/2020 F51.01 Primary insomnia Sy Bowden 05/26/2020 R29.2 Abnormal reflex Clarissa Rdz M.D. 05/26/2020 R20.0 Anesthesia of skin Diana Bowden Plan of Treatment Future Appointment(s):* 2020 1:45 pm - Clarissa Rdz M.D. at Main office - [place] Functional Status Description No Information Available Mental Status Description No Information Available Referrals Refer to Dr Reason for Referral Status Appt Date Clarissa Rdz M.D. Created [facility] [address] [place] [address] [phone]
--- OUTSIDE RECORDS SUMMARY | 2020-09-01 07:37 | CCD | Continuity of Care Document ---
Author Author Vika BOWDEN Organization Unknown Address [address] [place] [address] Phone [phone] Care Team Providers Care Naphthalene Operator Helper Name Role Phone Shukri Mejia M.D. AUTM [phone] Problems Active Problems Provider Date Chronic intractable migraine without aura Clarissa Rdz M.D. Onset: 05/26/2020 Chronic tension-type headache Clarissa Rdz M.D. Onset: Neck pain Clarissa Rdz M.D. Onset: 05/26/2020 Spondylolysis of cervical spine Clarissa Rdz M.D. Onset: 1 Low back pain [...] lb BMI (Body Mass Index) 27.3 kg/m2 [place] Body Weight 100 lb Results Description No Information Available Procedures Description No Information Available Medical Devices Description No Information Available Encounters Type Date Location Provider Dx Diagnosis Office Visit 05/26/2020 9:00a [facility] office - [place] Zoya Bowden G43.719 Chronic migraine w/o aura, [...] - Clarissa Rdz M.D. at Main office [facility] Functional Status Description No Information Available Mental Status Description No Information Available Referrals Description No Information Available
--- OUTSIDE RECORDS SUMMARY | 2020-09-01 07:37 | CCD | Continuity of Care Document ---
Author Author Vika ARCHIBALD MD Organization Unknown Address [address] [facility] [address] [place] [address] Phone [phone] Care Team Providers Care Professor Of Biostatistics Name Role Phone Shukri Mejia M.D. AUTM [phone] AUTM Unavailable Problems Active Problems Provider Date Allergic asthma without status asthmaticus Frantz Archibald MD Onset: 01/14/2020 Social History Type Date Description Comments Sex Unknown Tobacco Use Start: Unknown Never Smoked Cigarettes ETOH Use Denies alcohol use Tobacco Use Reviewed: 11/21/19 Patient has never smoked Smoking Status Reviewed: 11/21/19 Patient has never smoked Allergies, Adverse Reactions, Alerts Active Allergies Reaction Severity Comments Date Cefdinir Hives, Itching 10/01/2019 Inactive Allergies NKDA 09/05/2016 Medications Active Medications SIG Qnty Indications Ordering Provide r Date Proair HFA 108(90Base) mcg/Act Aer osol 2 puffs four times a day as needed Unknown Stool Softener 240mg Capsules 1 tab by mouth every day Unknown Amantadine HCL 100mg Capsules daily Unknown Immunizations Description No Information Available Vital Signs Date Vital Result Comment 08/20/2020 8:46am Height 60 inches 5'0" Weight 165.00 lb BMI (Body Mass Index) 32.2 kg/m2 [place] Body Weight 100 lb Weight 74.844 kg BSA (Body Surface Area) 1.72 m2 01/14/2020 9:57am Height 60 inches 5'0" Weight 155.00 lb BMI (Body Mass Index) 30.3 kg/m2 [place] Body Weight 100 lb Weight 70.308 kg BSA (Body Surface Area) 1.67 m2 Results Description No Information Available Procedures Description No Information Available Medical Devices Description No Information Available Encounters Description No Information Available Assessments Description No Information Available Plan of Treatment No Information Available Functional Status Functional Condition Comment Date Status Independent with all ADL's Activ e Mental Status Mental Condition Comment Date Status Cognitive ability not impaired A ctive Referrals Refer to Reason for Referral Status Appt Date Frantz Archibald M.D. chronic cough Created 07/24/2020 [address] [place] [address] [phone]
--- OUTSIDE RECORDS SUMMARY | 2020-09-01 07:37 | CCD | Continuity of Care Document ---
Author Author Vika BOWDEN Organization Unknown Address [address] [place] [address] Phone [phone] Care Team Providers Care Industrial Machine Operator Name Role Phone Shukri Mejia M.D. AUTM [phone] Problems Active Problems Provider Date Chronic intractable [...] lb BMI (Body Mass Index) 27.3 kg/m2 [place] Body Weight 100 lb Results Description No Information Available Procedures Date Code Description Status 06/16/2020 11312 MRI Spine Cervical W/O Contrast Completed 06/16/2020 94740 MRI Spine Cervical W/O Contrast Completed 06/16/2020 44729 MRI Brain W/O Contrast Completed 06/16/2020 93840 MRI Brain W/O Contrast Completed Medical Devices Description No Information Available Encounters Type Date Location Provider Dx Diagnosis Office Visit 05/26/2020 9:00a Main office - [place] Zoya Bowden G43.719 Chronic migraine w/o aura, intractable, w/o stat migr G44.221 Chronic tension-type headach e, intractable M54.2 Cervicalgia M43.02 Spondylolysis, cervical gume on M54.5 Low back pain M43.06 Spondylolysis, lumbar region F51.01 Primary insomnia R29.2 Abnormal reflex R20.0 Anesthesia of skin Assessments Date Code Description Provider 06/16/2020 G43.719 Chronic migraine wit hout aura, intractable, without status migrainosus Anu Leavitt M.D. 06/16/2020 G43.719 Chronic migraine wit hout aura, intractable, without status migrainosus MRI 06/16/2020 R29.2 Abnormal reflex Anu Dagmar, ZoyaD Tushar 06/16/2020 R29.2 Abnormal reflex MRI 06/16/2020 R20.0 Anesthesia of skin Anu Dagmar, ZoyaDTushar 06/16/2020 R20.0 Anesthesia of skin MRI 06/16/2020 M54.2 Cervicalgia Anu DagmarSy veloz 06/16/2020 M54.2 Cervicalgia MRI 05/26/2020 G43.719 Chronic [...] Clarissa Rdz M.D. at Main office - [place] Functional Status Description No Information Available Mental Status Description No Information Available Referrals Refer to Dr Reason for Referral Status Appt Date Clarissa Rdz M.D. Created [facility] [address] [place] [address] [phone]
--- OUTSIDE RECORDS SUMMARY | 2020-09-01 07:37 | CCD | Continuity of Care Document ---
Author Author Vika RDZ M.D. Organization Unknown Address [address] [place] [address] Phone [phone] Care Team Providers Care Ornament Setter Name Role Phone Shukri Mejia M.D. AUTM [phone] Problems Active Problems Provider Date Chronic intractable [...] mri scan. may repeat once if needed. 2tabs Clarissa Rdz M.D. 05/26/2020 Sumatriptan Succinate 100mg Tablet s half or 1 tab by mouth onset of headache, may repeat once after 2 hrs. 9tase Rdz M.D. 05/26/2020 Ibuprofen 800mg Tablets 1 by mouth twice a day as needed for severe headaches 10taDiana Mayo 05/26/2020 Immunizations Description No Information Available Vital Signs Date Vital Result Comment 05/26/2020 9:28am BP Systolic 110 mmHg BP Diastolic 70 mmHg Heart Rate 82 /min Respiratory Rate 14 /min Height 60 inches 5'0" Weight 140.00 lb BMI (Body Mass Index) 27.3 kg/m2 [place] Body Weight 100 lb Results Description No Information Available Procedures Date Code Description Status 06/16/2020 52694 MRI Spine Cervical W/O Contrast Completed 06/16/2020 00017 MRI Spine Cervical W/O Contrast Completed 06/16/2020 54287 MRI Brain W/O Contrast Completed 06/16/2020 59400 MRI Brain W/O Contrast Completed Medical Devices Description No Information Available Encounters Type Date Location Provider Dx Diagnosis Office Visit 05/26/2020 9:00a Main office - [place] Zoya Bowden G43.719 Chronic migraine w/o aura, intractable, w/o stat migr G44.221 Chronic tension-type headach e, intractable M54.2 Cervicalgia M43.02 Spondylolysis, cervical gume on M54.5 Low back pain M43.06 Spondylolysis, lumbar region F51.01 Primary insomnia R29.2 Abnormal reflex R20.0 Anesthesia of skin Assessments Date Code Description Provider 06/16/2020 G43.719 Chronic migraine wit hout aura, intractable, without status migrainosus Anu DagmarJustin veloz 06/16/2020 G43.719 Chronic migraine wit hout aura, intractable, without status migrainosus MRI 06/16/2020 R29.2 Abnormal reflex Anu DagmarZoyaD Tushar 06/16/2020 R29.2 Abnormal reflex MRI 06/16/2020 R20.0 Anesthesia of skin Anu DagmarZoyaDTushar 06/16/2020 R20.0 Anesthesia of skin MRI 06/16/2020 [...] of skin Diana Bowden Plan of Treatment No Information Available Functional Status Description No Information Available Mental Status Description No Information Available Referrals Refer to Dr Reason for Referral Status Appt Date Clarissa Rdz M.D. Created [facility] [address] [place] [address] [phone]
--- OUTSIDE RECORDS SUMMARY | 2020-09-01 07:37 | CCD | Continuity of Care Document ---
Author Author Vika MEJIA M.D. Organization Unknown Address [address] [place] [address] Phone [phone] Problems Active Problems Provider Date Anxiety Shukri [...] CPT Code Status Date Vaccine Lot # [id number] Refused 07/22/2019 Influenza Virus Vaccine, Quadrivalent, Slit Virus, Im Use 3Y & Up [id number] Refused 06/10/2016 Influenza Virus Vaccine, Quadrivalent, Slit Virus, Im Use 3Y & Up Vital Signs Date Vital Result Comment 07/21/2020 2:01pm BP Systolic 122 mmHg BP Diastolic 76 mmHg Body Temperature 98.0 F Heart Rate 80 /min Respiratory Rate 14 /min Height 59 inches 4'11" Weight 170.00 lb [place] Body Weight 100 lb BMI (Body Mass Index) 34.3 kg/m2 O2 % BldC Oximetry 97 % 05/11/2020 11:16am BP Systolic 120 mmHg BP Diastolic 80 mmHg Body Temperature 98.6 F Heart Rate 76 /min Respiratory Rate 12 /min Height 59 inches 4'11" Weight 167.00 lb [place] Body Weight 100 lb BMI (Body Mass Index) 33.7 kg/m2 O2 % BldC Oximetry 97 % Results Description No Information Available Procedures Description No Information Available Medical Devices Description No Information Available Encounters Type Date Location Provider Dx Diagnosis Office Visit 07/21/2020 1:00p [place] [facility] Shukri Mejia M. D. R05 Cough Office Visit 05/11/2020 11:00a [place] [facility] Shukri Mejia M. D. K21.9 Gastro-esophageal reflux disease without esophagitis G43.909 Migraine, unsp, not intracta ble, without status migrainosus M79.7 Fibromyalgia Office Visit 03/09/2020 11:00a [place] [facility] Shukri Mejia M. D. F41.9 Anxiety disorder, unspecified K21.9 Gastro-esophageal reflux dis ease without esophagitis Office Visit 01/27/2020 11:30a [place] [facility] Shukri Mejia M. D. G43.909 Migraine, unsp, not intractable, without status migrainosus M79.7 Fibromyalgia Assessments Date Code Description Provider 07/21/2020 R05 Cough Shkuri Mejia M.D. 05/11/2020 K21.9 Gastro-esophageal reflux disease without esophagitis Shukri Mejia M.D. 05/11/2020 G43.909 Migraine, unspecified, not intra ctable, without status migra Shukri Mejia M.D. 05/11/2020 M79.7 Fibromyalgia Shukri Mejia M.D. 03/09/2020 F41.9 Anxiety disorder, unspecified Mi Shukir pena M.D. 03/09/2020 K21.9 Gastro-esophageal reflux disease without esophagitis Shukri Mejia M.D. 01/27/2020 G43.909 Migraine, unspecified, not intra ctable, without status migra Shukri Mejia M.D. 01/27/2020 M79.7 Fibromyalgia Shukri Mejia M.D. Plan of Treatment Future Appointment(s):* 09/21/2020 10:40 am - Shukri Mejia M.D. at [facility] [place] * 11/09/2020 10:20 am - Shukri Mejia M.D. at [facility] [place] Functional Status Description No Information Available Mental Status Description No Information Available Referrals Refer to Dr Reason for Referral Status Appt Date [facility] chronic cough, eval and rx Se nt [address] [facility] [address] [place] [address] [phone] Vika Fajardo M.D. chronic night time cough, b loating and cramping - eval and rx [facility] [address] [address] [phone] Clarissa Rdz migraines- eval and rx Sent 05/26/[address] [place] [address] [facility] [address] [place], [place] [address] [phone]
--- OUTSIDE RECORDS SUMMARY | 2020-09-01 07:38 | CCD ---
Author Author [facility] Organization [facility] Address Unknown Phone Unavailable Care Team Providers Care Brush Finisher Name Role Phone Viki MORRIS DPM Unavailable Unavailable Viki MORRIS DPM Unavailable Unavailable Viki MORRIS DPM Unavailable Unavailable Viki MORRIS DPM Unavailable Unavailable Viki MORRIS DPM Unavailable Unavailable Viki MORRIS DPM Unavailable Unavailable Viki MORRIS DPM Unavailable Unavailable Viki MORRIS DPM Unavailable Unavailable MAJAK, R CYRUS DPM Unavailable Unavailable MAJAK, R CYRUS DPM Unavailable Unavailable MAJAK, R CYRUS DPM Unavailable Unavailable MAJAK, R CYRUS DPM Unavailable Unavailable MAJAK, R CYRUS DPM Unavailable Unavailable MAJAK, R CYRUS DPM Unavailable Unavailable MAJAK, R CYRUS DPM Unavailable Unavailable MAJAK, R CYRUS DPM Unavailable Unavailable MAJAK, R CYRUS DPM Unavailable Unavailable MAJAK, R CYRUS DPM Unavailable Unavailable MAJAK, R CYRUS DPM Unavailable Unavailable MAJAK, R CYRUS DPM Unavailable Unavailable MAJAK, R CYRUS DPM Unavailable Unavailable MAJAK, R CYRUS DPM Unavailable Unavailable MAJAK, R CYRUS DPM Unavailable Unavailable MAJAK, R CYRUS DPM Unavailable Unavailable MAJAK, R CYRUS DPM Unavailable Unavailable MAJAK, R CYRUS DPM Unavailable Unavailable MAJAK, R CYRUS DPM Unavailable Unavailable MAJAK, R CYRUS DPM Unavailable Unavailable MAJAK, R CYRUS DPM Unavailable Unavailable MAJAK, R CYRUS DPM Unavailable Unavailable Zach MEJIA MD Unavailable Unavailable Zach MEJIA MD Unavailable Unavailable Zach MEJIA MD Unavailable Unavailable Zach MEJIA MD Unavailable Unavailable Zach MEJIA MD Unavailable Unavailable Zach MEJIA MD Unavailable Unavailable Zach MEJIA MD Unavailable Unavailable Zach MEJIA MD Unavailable Unavailable Zach MEJIA MD Unavailable Unavailable Zach MEJIA MD Unavailable Unavailable Zach MEJIA MD Unavailable Unavailable Zach MEJIA MD Unavailable Unavailable Zach MEJIA MD Unavailable Unavailable Zach MEJIA MD Unavailable Unavailable Zach MEJIA MD Unavailable Unavailable Zach MEJIA MD Unavailable Unavailable Zach MEJIA MD Unavailable Unavailable Zach MEJIA MD Unavailable Unavailable Zach MEJIA MD Unavailable Unavailable Zach MEJIA MD Unavailable Unavailable Zach MEJIA MD Unavailable Unavailable Zach MEJIA MD Unavailable Unavailable Zach MEJIA MD Unavailable Unavailable Zach MEJIA MD Unavailable Unavailable Zach MEJIA MD Unavailable Unavailable Zach MEJIA MD Unavailable Unavailable Zach MEJIA MD Unavailable Unavailable Zach MEJIA MD Unavailable Unavailable Zach MEJIA MD Unavailable Unavailable Zach MEJIA MD Unavailable Unavailable Zach MEJIA MD Unavailable Unavailable Zach MEJIA MD Unavailable Unavailable Zach MEJIA MD Unavailable Unavailable Zach MEJIA MD Unavailable Unavailable Zach MEJIA MD Unavailable Unavailable Zach MEJIA MD Unavailable Unavailable Zach MEJIA MD Unavailable Unavailable Zach MEJIA MD Unavailable Unavailable Zach MEJIA MD Unavailable Unavailable Zach MEJIA MD Unavailable Unavailable Zach MEJIA MD Unavailable Unavailable Zach MEJIA MD Unavailable Unavailable Zach MEJIA MD Unavailable Unavailable Zach MEJIA MD Unavailable Unavailable Zach MEJIA MD Unavailable Unavailable Zach MEJIA MD Unavailable Unavailable Zach MEJIA MD Unavailable Unavailable Zach MEJIA MD Unavailable Unavailable Zach MEJIA MD Unavailable Unavailable Zach MEJIA MD Unavailable Unavailable MATT H SHUKRI PAYAN Unavailable Unavailable Zach MEJIA MD Unavailable Unavailable MATT H SHUKRI PAYAN Unavailable Unavailable MATT H SHUKRI PAYAN Unavailable Unavailable MATT H SHUKRI PAYAN Unavailable Unavailable MATT H SHUKRI PAYAN Unavailable Unavailable MATT H SHUKRI PAYAN Unavailable Unavailable Zach MEJIA MD Unavailable Unavailable MATT H SHUKRI PAYAN Unavailable Unavailable MATT H SHUKRI PAYAN Unavailable Unavailable Zach MEJIA MD Unavailable Unavailable MATT H SHUKRI PAYAN Unavailable Unavailable MATT H SHUKRI PAYAN Unavailable Unavailable Zach MEJIA MD Unavailable Unavailable Zach MEJIA MD Unavailable Unavailable Zach MEJIA MD Unavailable Unavailable Zach MEJIA MD Unavailable Unavailable Zach MEJIA MD Unavailable Unavailable Zach MEJIA MD Unavailable Unavailable Zach MEJIA MD Unavailable Unavailable Zach MEJIA MD Unavailable Unavailable Zach MEJIA MD Unavailable Unavailable Zach MEJIA MD Unavailable Unavailable Zach MEJIA MD Unavailable Unavailable Zach MEJIA MD Unavailable Unavailable Zach MEJIA MD Unavailable Unavailable Zach MEJIA MD Unavailable Unavailable Zach MEJIA MD Unavailable Unavailable Zach MEJIA MD Unavailable Unavailable Zach MEJIA MD Unavailable Unavailable Zach MEJIA MD Unavailable Unavailable Zach MEJIA MD Unavailable Unavailable Zach MEJIA MD Unavailable Unavailable Zach MEJIA MD Unavailable Unavailable Zach MEJIA MD Unavailable Unavailable Zach MEJIA MD Unavailable Unavailable Zach MEJIA MD Unavailable Unavailable Zach MEJIA MD Unavailable Unavailable Zach MEJIA MD Unavailable Unavailable Zach MEJIA MD Unavailable Unavailable Zach MEJIA MD Unavailable Unavailable Zach MEJIA MD Unavailable Unavailable Zach MEJIA MD Unavailable Unavailable Zach MEJIA MD Unavailable Unavailable Zach MEJIA MD Unavailable Unavailable Zach MEJIA MD Unavailable Unavailable Zach MEJIA MD Unavailable Unavailable Zach MEJIA MD Unavailable Unavailable Zach MEJIA MD Unavailable Unavailable Zach MEJIA MD Unavailable Unavailable Zach MEJIA MD Unavailable Unavailable Zach MEJIA MD Unavailable Unavailable Zach EMJIA MD Unavailable Unavailable Zach MEJIA MD Unavailable Unavailable Zach MEJIA MD Unavailable Unavailable Zach MEJIA MD Unavailable Unavailable Zach MEJIA MD Unavailable Unavailable Zach MEJIA MD Unavailable Unavailable Zach MEJIA MD Unavailable Unavailable Zach MEJIA MD Unavailable Unavailable Zach MEJIA MD Unavailable Unavailable Zach MEJIA MD Unavailable Unavailable Zach MEJIA MD Unavailable Unavailable Zach MEJIA MD Unavailable Unavailable Zach MEJIA MD Unavailable Unavailable Zach MEJIA MD Unavailable Unavailable Zach MEJIA MD Unavailable Unavailable Zach MEJIA MD Unavailable Unavailable Zach MEJIA MD Unavailable Unavailable Zach MEJIA MD Unavailable Unavailable Zach MEJIA MD Unavailable Unavailable Zach MEJIA MD Unavailable Unavailable Zach MEJIA MD Unavailable Unavailable Zach MEJIA MD Unavailable Unavailable Zach MEJIA MD Unavailable Unavailable Zach MEJIA MD Unavailable Unavailable Zach MEJIA MD Unavailable Unavailable Zach MEJIA MD Unavailable Unavailable Zach MEJIA MD Unavailable Unavailable Zach MEJIA MD Unavailable Unavailable MATT H SHUKRI PAYAN Unavailable Unavailable Zach MEJIA MD Unavailable Unavailable MATT, Zach FRANK MD Unavailable Unavailable MATT, H SHUKRI PAYAN Unavailable Unavailable Zach MEJIA MD Unavailable Unavailable Zach MEJIA MD Unavailable Unavailable Zach MEJIA MD Unavailable Unavailable Zach MEJIA MD Unavailable Unavailable Zach MEJIA MD Unavailable Unavailable Zach MEJIA MD Unavailable Unavailable Zach MEJIA MD Unavailable Unavailable Zach MEJIA MD Unavailable Unavailable Zach MEJIA MD Unavailable Unavailable Zach MEJIA MD Unavailable Unavailable Zach MEJIA MD Unavailable Unavailable Zach MEJIA MD Unavailable Unavailable Zach MEJIA MD Unavailable Unavailable Zach MEJIA MD Unavailable Unavailable Zach MEJIA MD Unavailable Unavailable Zach MEJIA MD Unavailable Unavailable ALICE, VIDYA FELECIA ROTARY DRIER OPERATOR-C Unavailable Unavailable ALICE, VIDYA FELECIA ROTARY DRIER OPERATOR-C Unavailable Unavailable ALICE, VIDYA FELECIA ROTARY DRIER OPERATOR-C Unavailable Unavailable ALICE, VIDYA FELECIA ROTARY DRIER OPERATOR-C Unavailable Unavailable ALICE, VIDYA FELECIA ROTARY DRIER OPERATOR-C Unavailable Unavailable ALICE, VIDYA FELECIA ROTARY DRIER OPERATOR-C Unavailable Unavailable ALICE, VIDYA FELECIA ROTARY DRIER OPERATOR-C Unavailable Unavailable ALICE, VIDYA FELECIA ROTARY DRIER OPERATOR-C Unavailable Unavailable ALICE, VIDYA FELECIA ROTARY DRIER OPERATOR-C Unavailable Unavailable ALICE, VIDYA FELECIA ROTARY DRIER OPERATOR-C Unavailable Unavailable ALICE, VIDYA FELECIA ROTARY DRIER OPERATOR-C Unavailable Unavailable ALICE, VIDYA FELECIA ROTARY DRIER OPERATOR-C Unavailable Unavailable ALICE, VIDYA FELECIA ROTARY DRIER OPERATOR-C Unavailable Unavailable ALICE, VIDYA FELECIA ROTARY DRIER OPERATOR-C Unavailable Unavailable ALICE, VIDYA FELECIA ROTARY DRIER OPERATOR-C Unavailable Unavailable PRASANTH CEDEÑO MD Unavailable Unavailable PRASANTH CEDEÑO MD Unavailable Unavailable PRASANTH CEDEÑO MD Unavailable Unavailable PRASANTH CEDEÑO MD Unavailable Unavailable REINDL, PRASANTH PAYAN Unavailable Unavailable REINDL, PRASANTH PAYAN Unavailable Unavailable REINDL, PRASANTH PAYAN Unavailable Unavailable REINDL, PRASANTH PAYAN Unavailable Unavailable REINDL, PRASANTH PAYAN Unavailable Unavailable REINDL, PRASANTH PAYAN Unavailable Unavailable REINDL, PRASANTH PAYAN Unavailable Unavailable REINDL, PRASANTH PAYAN Unavailable Unavailable REINDL, PRASANTH PAYAN Unavailable Unavailable REINDL, PRASANTH PAYAN Unavailable Unavailable REINDL, PRASANTH PAYAN Unavailable Unavailable REINDL, PRASANTH PAYAN Unavailable Unavailable REINDL, PRASANTH PAYAN Unavailable Unavailable REINDL, PRASANTH PAYAN Unavailable Unavailable REINDL, PRASANTH PAYAN Unavailable Unavailable REINDL, PRASANTH PAYAN Unavailable Unavailable REINDL, PRASANTH PAYAN Unavailable Unavailable REINDL, PRASANTH PAYAN Unavailable Unavailable REINDL, PRASANTH PAYAN Unavailable Unavailable REINDL, PRASANTH PAYAN Unavailable Unavailable REINDL, PRASANTH PAYAN Unavailable Unavailable REINDL, PRASANTH PAYAN Unavailable Unavailable REINDL, PRASANTH PAYAN Unavailable Unavailable REINDL, PRASANTH PAYAN Unavailable Unavailable REINDL, PRASANTH PAYAN Unavailable Unavailable REINDL, PRASANTH PAYAN Unavailable Unavailable REINDL, PRASANTH PAYAN Unavailable Unavailable REINDL, PRASANTH PAYAN Unavailable Unavailable REINDL, PRASANTH PAYAN Unavailable Unavailable REINDL, PRASANTH PAYAN Unavailable Unavailable REINDL, PRASANTH PAYAN Unavailable Unavailable REINDL, PRASANTH PAYAN Unavailable Unavailable REINDL, PRASANTH PAYAN Unavailable Unavailable REINDL, PRASANTH PAYAN Unavailable Unavailable REINDL, PRASANTH PAYAN Unavailable Unavailable REINDL, PRASANTH PAYAN Unavailable Unavailable REINDL, PRASANTH PAYAN Unavailable Unavailable REINDL, PRASANTH PAYAN Unavailable Unavailable Clarissa Rdz MD Unavailable Unavailable Clarissa Rdz MD Unavailable Unavailable Clarissa Rdz MD Unavailable Unavailable Clarissa Rdz MD Unavailable Unavailable Clarissa Rdz MD Unavailable Unavailable Clarissa Rdz MD Unavailable Unavailable Clarissa Rdz MD Unavailable Unavailable Clarissa Rdz MD Unavailable Unavailable Clarissa Rdz MD Unavailable Unavailable Clarissa Rdz MD Unavailable Unavailable Clarissa Rdz MD Unavailable Unavailable Clarissa Rdz MD Unavailable Unavailable Clarissa Rdz MD Unavailable Unavailable Clarissa Rdz MD Unavailable Unavailable Clarissa Rdz MD Unavailable Unavailable Clarissa Rdz MD Unavailable Unavailable Clarissa Rdz MD Unavailable Unavailable Clarissa Rdz MD Unavailable Unavailable Clarissa Rdz MD Unavailable Unavailable Clarissa Rdz MD Unavailable Unavailable Clarissa Rdz MD Unavailable Unavailable Clarissa Rdz MD Unavailable Unavailable Clarissa Rdz MD Unavailable Unavailable Clarissa Rdz MD Unavailable Unavailable Clarissa Rdz MD Unavailable Unavailable Clarissa Rdz MD Unavailable Unavailable Clarissa Rdz MD Unavailable Unavailable Clarissa Rdz MD Unavailable Unavailable Clarissa Rdz MD Unavailable Unavailable Clarissa Rdz MD Unavailable Unavailable Clarissa Rdz MD Unavailable Unavailable Clarissa Rdz MD Unavailable Unavailable Clarissa Rdz MD Unavailable Unavailable Clarissa Rdz MD Unavailable Unavailable Clarissa Rdz MD Unavailable Unavailable Clarissa Rdz MD Unavailable Unavailable Clarissa Rdz MD Unavailable Unavailable Clarissa Rdz MD Unavailable Unavailable Clarissa Rdz MD Unavailable Unavailable Clarissa Rdz MD Unavailable Unavailable Clarissa Rdz MD Unavailable Unavailable Clarissa Rdz MD Unavailable Unavailable Clarissa Rdz MD Unavailable Unavailable Clarissa Rdz MD Unavailable Unavailable Clarissa Rdz MD Unavailable Unavailable Clarissa Rdz MD Unavailable Unavailable Clarissa Rdz MD Unavailable Unavailable Clarissa Rdz MD Unavailable Unavailable Clarissa Rdz MD Unavailable Unavailable Clarissa Rdz MD Unavailable Unavailable Clarissa Rdz MD Unavailable Unavailable Clarissa Rdz MD Unavailable Unavailable GLEASMAN SHELLIE, L LOIDA WARRANTY COORDINATOR Unavailable Unavailable GLEASMAN SHELLIE, L LOIDA WARRANTY COORDINATOR Unavailable Unavailable GLEASMAN SHELLIE, L LOIDA WARRANTY COORDINATOR Unavailable Unavailable GLEASMAN SHELLIE, L LOIDA WARRANTY COORDINATOR Unavailable Unavailable GLEASMAN SHELLIE, L LOIAD WARRANTY COORDINATOR Unavailable Unavailable GLEASMAN SHELLIE, L LOIDA WARRANTY COORDINATOR Unavailable Unavailable GLEASMAN SHELLIE, L LOIDA WARRANTY COORDINATOR Unavailable Unavailable GLEASMAN SHELLIE, L LOIDA WARRANTY COORDINATOR Unavailable Unavailable GLEASMAN SHELLIE, L LOIDA WARRANTY COORDINATOR Unavailable Unavailable GLEASMAN SHELLIE, L LOIDA WARRANTY COORDINATOR Unavailable Unavailable GLEASMAN SHELLIE, L LOIDA WARRANTY COORDINATOR Unavailable Unavailable GLEASMAN SHELLIE, L LOIDA WARRANTY COORDINATOR Unavailable Unavailable GLEASMAN SHELLIE, L LOIDA WARRANTY COORDINATOR Unavailable Unavailable GLEASMAN SHELLIE, L LOIDA WARRANTY COORDINATOR Unavailable Unavailable GLEASMAN SHELLIE, L LOIDA WARRANTY COORDINATOR Unavailable Unavailable GLEASMAN SHELLIE, L LOIDA WARRANTY COORDINATOR Unavailable Unavailable GLEASMAN SHELLIE, L LOIDA WARRANTY COORDINATOR Unavailable Unavailable GLEASMAN SHELLIE, L LOIDA WARRANTY COORDINATOR Unavailable Unavailable GLEASMAN SHELLIE, L LOIDA WARRANTY COORDINATOR Unavailable Unavailable GLEASMAN SHELLIE, L LOIDA WARRANTY COORDINATOR Unavailable Unavailable GLEASMAN SHELLIE, L LOIDA WARRANTY COORDINATOR Unavailable Unavailable GLEASMAN SHELLIE, L LOIDA WARRANTY COORDINATOR Unavailable Unavailable GLEASMAN SHELLIE, L LOIDA WARRANTY COORDINATOR Unavailable Unavailable GLEASMAN SHELLIE, L LOIDA WARRANTY COORDINATOR Unavailable Unavailable GLEASMAN SHELLIE, L LOIDA WARRANTY COORDINATOR Unavailable Unavailable GLEASMAN SHELLIE, L LOIDA WARRANTY COORDINATOR Unavailable Unavailable GLEASMAN SHELLIE, L LOIDA WARRANTY COORDINATOR Unavailable Unavailable GLEASMAN SHELLIE, L LOIDA WARRANTY COORDINATOR Unavailable Unavailable GLEASMAN SHELLIE, L LOIDA WARRANTY COORDINATOR Unavailable Unavailable GLEASMAN SHELLIE, L LOIDA WARRANTY COORDINATOR Unavailable Unavailable GLEASMAN SHELLIE, L LOIDA WARRANTY COORDINATOR Unavailable Unavailable GLEASMAN SHELLIE, L LOIDA WARRANTY COORDINATOR Unavailable Unavailable GLEASMAN SHELLIE, L LOIDA WARRANTY COORDINATOR Unavailable Unavailable GLEASMAN SHELLIE, L LOIDA WARRANTY COORDINATOR Unavailable Unavailable GLEASMAN SHELLIE, L LOIDA WARRANTY COORDINATOR Unavailable Unavailable Re-disclosure Warning The records that you are about to access may contain information from federally-assisted alcohol or drug abuse programs. If such information is present, then the following federally mandated warning applies: This information has been disclosed to you from records protected by federal confidentiality rules (42 CFR part 2). The federal rules prohibit you from making any further disclosure of this information unless further disclosure is expressly permitted by the written consent of the person to whom it pertains or as otherwise permitted by 42 CFR part 2. A general authorization for the release of medical or other information is NOT sufficient for this purpose. The Federal rules restrict any use of the information to criminally investigate or prosecute any alcohol or drug abuse patient.The records that you are about to access may contain highly sensitive health information, the redisclosure of which is protected by Article 27-F of the [facility] Public Health law. If you continue you may have access to information: Regarding HIV / AIDS; Provided by facilities licensed or operated by the [facility] Office of Mental Health; or Provided by the [facility] Office for People With Developmental Disabilities. If such information is present, then the following [facility] mandated warning applies: This information has been disclosed to you from confidential records which are protected by state law. State law prohibits you from making any further disclosure of this information without the specific written consent of the person to whom it pertains, or as otherwise permitted by law. Any unauthorized further disclosure in violation of state law may result in a fine or correction sentence or both. A general authorization for the release of medical or other information is NOT sufficient authorization for further disc losure. Allergies and Adverse Reactions Type Description Substance Reaction Status Data Source(s ) Drug Allergy NKDA NKDA [facility] ([facility], ) Drug allergy Drug allergy NKDA [facility] ([facility] Family History Family Member Name Family Member Gender Family Member Status Date o f Status Description Data Source(s) Unknown Unknown Problem [facility] ([facility] ) Encounters Encounter Providers Location Date Indications Data Source(s ) Attender: LOIDA GUERRIERIMONE NPReferrer: BELKYS MEJIA MD 08/25/2020 08:21:01 PM EST [facility] Attender: LOIDA SUNDEEP SHELLIE NPReferrer: BELKYS MEJIA MD 08/25/2020 08:21:01 PM EST [facility] Attender: LOIDA SUNDEEP SHELLIE NPReferrer: BELKYS MEJIA MD 08/25/2020 08:21:01 PM EST [facility] Outpatient Attender: Clarissa Rdz MD [facility] 07/28/2020 01:15:00 PM EST [facility] ([facility]) Outpatient Attender: SHUKRI MEJIA MD [facility] 03/2020 12:00:00 PM EST [facility] ([facility] Outpatient Attender: Clarissa Rdz MD [facility] - [facility] 05/26/2020 09:00:00 AM EDT MED[facility] ([facility]) Outpatient Attender: CYRUS MORRIS DPM [facility] 04/2020 10:00:00 AM EDT MED[facility] ([facility] Outpatient Attender: SHUKRI MEJIA MD [facility] 11:00:00 AM EDT MED[facility] ([facility] Outpatient Attender: SHUKRI MEJIA MD [facility] 11:00:00 AM EDT MED[facility] ([facility] Outpatient Attender: CYRUS MORRIS DPM [facility] 04/2020 10:00:00 AM EDT MEDENT ([facility] Outpatient Attender: SHUKRI MEJIA MD [facility] 11:30:00 AM EDT MEDENT ([facility] Outpatient [address] [facility] [id number] 01/16/2020 12:00:00 AM EDT eCW1 ([facility]) [facility] [address] [place] [address] 01/01/2020 12:00:00 AM EDT eCW1 ([facility]) Outpatient Attender: SHUKRI MEJIA MD [facility] 01:30:00 PM EDT MED[facility] ([facility] [address] [place] [address] 12/17/2019 12:00:00 AM EDT eCW1 ([facility]) Outpatient Attender: FELECIA Nicole/Dragan/Enmanuel/R eindl 11/21/2019 10:45:00 AM EDT MEDENT ([facility] [address] [place] [address] 11/20/2019 12:00:00 AM EDT eCW1 ([facility]) [facility] [address] [place] [address] 10/18/2019 12:00:00 AM EST eCW1 ([facility]) [facility] [address] [place] [address] 10/16/2019 12:00:00 AM EST eCW1 ([facility]) Outpatient Attender: FELECIA Nicole/Anza/Enmanuel/R eindl 10/01/2019 08:45:00 AM EST MEDENT ([facility] [address] [place] [address] 09/11/2019 12:00:00 AM EST eCW1 ([facility]) Outpatient Attender: CYRUS MORRIS [facility] Office 07/14 10:15:00 AM EST MEDENT ([facility] Outpatient Attender: SHUKRI MEJIA MD [place] [facility] 04/2019 09:20:00 AM EST MEDENT ([facility] Outpatient 07/18/2019 08:12:00 PM EST [facility] Outpatient Attender: CYRUS MORRIS [facility] Office 06/15 02:30:00 PM EST MEDENT ([facility] Outpatient Attender: PRASANTH Nicole/Dragan/Enmanuel/Mario mg 07/04/2019 10:00:00 AM EST MEDENT ([facility], ) Immunizations Vaccine Date Status Description Data Source(s) New in 2012. IIV4 07/22/2019 09:35:00 AM EST completed MED[facility] ([facility] Medications Medication Brand Name Start Date Product Form Dose Route Admi nistrative Instructions Pharmacy Instructions Status Indications Reaction Description Data Source(s) topiramate 50 MG Oral Tablet Topiramate 05/26/2020 12:00:00 AM EDT active MEDENT ([facility], ) Sumatriptan 100 MG Oral Tablet Sumatriptan Succinate 05/26/2020 12:00:00 AM EDT ORAL active MEDENT ( [facility], ) Alprazolam 0.5 MG Oral Tablet Alprazolam 05/26/2020 12:00:00 AM EDT ORAL active MEDENT ([facility], ) Ibuprofen 800 MG Oral Tablet Ibuprofen 05/26/2020 12:00:00 AM EDT ORAL active MEDENT ([facility], ) Famotidine 20 MG Oral Tablet Famotidine 05/20/2020 12:00:00 AM EDT ORAL active MED[facility] ([facility] Rabeprazole sodium 20 MG Delayed Release Oral Tablet Rabepra zole Sodium 03/10/2020 12:00:00 AM EDT active MEDENT ([facility] dexlansoprazole 60 MG Delayed Release Oral Capsule [Dexilant ] Dexilant 03/09/2020 12:00:00 AM EDT ORAL completed MEDENT ([facility] duloxetine 60 MG Delayed Release Oral Capsule Duloxetine HCL 03/09/2020 12:00:00 AM EDT ORAL active MEDENT ([facility] efinaconazole 100 MG/ML Topical Solution [Jublia] Jublia 02/20/2020 12:00:00 AM EDT active MEDENT ([facility] Amitriptyline Hydrochloride 50 MG Oral Tablet Amitriptyline HCL 12/25/2019 12:00:00 AM EDT ORAL completed MED[facility] ([facility] ciclopirox 80 MG/ML Topical Solution Ciclopirox 07/29/2019 12:00:00 A M EST active [facility] ([facility] Diphenhydramine Hydrochloride 25 MG Oral Tablet [Benadryl] B enadryl Allergy 07/29/2019 12:00:00 AM EST ORAL active MED[facility] ([facility] Terbinafine hydrochloride 10 MG/ML Topical Cream Terbinafine HCL 07/25/2019 12:00:00 AM EST completed [facility] ([facility] terbinafine 250 MG Oral Tablet Terbinafine HCL 07/25/2019 12:00:00 AM EST ORAL completed [facility] ([facility] Magnesium Hydroxide 80 MG/ML Oral Suspension Milk Of Magnesi a 07/04/2019 12:00:00 AM EST ORAL completed MEDENT ([facility], ) Ondansetron 4 MG Disintegrating Oral Tablet Ondansetron 07/04/2019 12:00:00 AM EST ORAL completed MEDENT ([facility], ) POLYETHYLENE GLYCOL 3350 105 MG/ML / Pot assium Chloride 0.21668 MEQ/ML / Sodium Bicarbonate 0.017 MEQ/ML / Sodium Chloride 0.0479 MEQ/ML Oral Solution [TriLyte] Trilyte 07/04/2019 12:00:00 AM EST completed MEDENT ([facility], ) Betamethasone 0.0005 MG/MG Augmented Topical Gel Augme nted Betamethasone Dipropionate 07/04/2019 12:00:00 AM EST active MED[facility] ([facility] Ketoconazole 20 MG/ML Topical Cream Ketoconazole 06/28/2019 12:00:00 AM EST completed MED[facility] ([facility] Insurance Providers Payer name Policy type / Coverage type Policy ID Covered republican ID Covered republican's relationship to france Policy [place] Plan Information [place] 302/307 [id number] SP [id number] [place]/307 [id number] SP [id number] [facility] PPO POS [id number] [employer]BS B [id number] S [id number] [id number] [place] 302/307 [id number] SP [id number] [place] [place] 302/307 [id number] SP [id number] [place] 302/307 [id number] SP [id number] [employer] BCBS B [id number] S [id number] [id number] [place] [place] 302/307 [id number] SP [id number] [facility] [id number] SP [id number] MVP Health Maintenance Organization (HMO) [id number] Self [id number] VALUE OPTIONS (MVP) [id number] SP [id number] MVP (pr) Commercial [id number] Self [id number] [facility] [id number] SP [id number] [facility] UNAVAILABLE SP UN [facility] O [id number] S [id number] O UNAVAILABLE UNAVAILA BLE [facility] Workers Compensation [id number] Self [id number] [facility]() Workers Compensation [id number] Self [id number] [employer] Health Maintenance Organization (HMO) [id number] Self [id number] MVP (pr) Commercial Self MVP Health Maintenance Organization (HMO) Se lf [facility] UNAVAILABLE SP UNAVAILA BLE [facility] [id number] SP [id number] [facility] Compensation Self [employer] [facility] [employer] Health Maintenance Organization (HMO) Self [facility] O [id number] S [id number] [facility] [id number] SP [id number] O BLUE [id number] SP [id number] BLUE [place]OSS OLIVA PLAN [id number] SP [id number] [facility] COMMUNITY PLAN MCDO - SP - [facility] PH[facility] [id number] SP [id number] Problems, Conditions, and Diagnoses Code Display Name Description Problem Type Effective Dates Data Source(s) 264033862 Migraine with typical aura Migraine with typical aura Problem 07/28/2020 12:00:00 AM EST MEDENT ([facility], ) 99565669 Skin sensation disturbance Skin sensation disturbance Problem 05/26/2020 12:00:00 AM EDT MEDENT ([facility], ) 50887322 Abnormal reflex Abnormal reflex Problem 05/26/2020 12:0 0:00 AM EDT MEDENT ([facility], ) [id number] 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 Problem 05/26/2020 12:00:00 AM EDT MEDENT ([facility], ) 417822798 Spondylolysis Spondylolysis Problem 05/26/2020 12:00:00 AM EDT MEDENT ([facility], ) [id number] Low back pain Low back pain Problem 05/26/2020 12:00:00 AM EDT MEDENT ([facility], ) 151791737 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 Problem 05/26/2020 12:00:00 AM EDT MEDENT ([facility], ) 12989049 Neck pain Neck pain Problem 05/26/2020 12:00:00 AM ED T MEDENT ([facility], ) 194486899 Chronic tension-type headache Chronic tension-type hea dache Problem 05/26/2020 12:00:00 AM EDT MEDENT ([facility], ) [id number] Chronic intractable migraine without aur a Chronic intractable migraine without aura Problem 05/26/2020 12:00:00 AM EDT MEDENT ([facility], ) N92.0 Menorrhagia Menorrhagia Problem 01/21/2020 12:00:00 AM EDT eCW1 ([facility]) 12110348 Allergic asthma without status asthmatic us Allergic asthma without status asthmaticus Problem 01/14/2020 12:00:00 AM EDT MEDENT ([facility], ) N92.0 342929541 Menorrhagia with regular cycle Problem 09/11/2019 12:00:00 AM EST eCW1 ([facility]) N92.0 110781251 Menorrhagia with regular cycle Problem 09/11/2019 12:00:00 AM EST eCW1 ([facility]) [id number] Onychomycosis Onychomycosis Problem 08/08/2019 12:00:00 AM EST MEDENT ([facility] 1471026 Tinea pedis Tinea pedis Problem 07/14/2019 12:00:00 AM EST MEDENT ([facility] Surgeries/Procedures Procedure Description Date Indications Data Source(s) MRI BRAIN BRAIN STEM W/O CONTRAST MATERIAL 06/16/2020 12:00:00 AM EST MEDENT ([facility], ) MRI BRAIN BRAIN STEM W/O CONTRAST MATERIAL 06/16/2020 12:00:00 AM EST MEDENT ([facility], ) MRI SPINAL CANAL CERVICAL W/O CONTRAST MATRL 0 12:00:00 AM EST MEDENT ([facility]) MRI SPINAL CANAL CERVICAL W/O CONTRAST MATRL 0 12:00:00 AM EST MEDENT ([facility], ) Colonoscopy W/ Poly 09/19/2019 12:00:00 AM EST MEDENT ([facility]) Results ID Date Data Source [id number] 08/27/2020 10:00:00 AM EST [facility] Name Value Range Interpretation Code Description Data Vonda rce(s) Supporting Document(s) SARS coronavirus 2 RNA Not Detected [facility] This lab was ordered by [facility] and reported by [facility]. ID Date Data Source [id number] 08/25/2020 10:30:00 AM EST [facility] Name Value Range Interpretation Code Description Data Vonda rce(s) Supporting Document(s) First [facility] WGAHMg3jYjLOMaDnTXXsXzkCXItbYMlxDTNxM7F3EWdaIu6HCZdgloLdRGIbNf5+SZNgFT2vmo1rWOUe gMy 1zCCQlOogtX7SvSMVxp88IVOThKXaTEqByGiBjGFRlGSesNyWzYSE4XeCzTbyvEW5jEHK5KCWvSYcySJ ExMFVuEuJ1Oid3IC3jMSkqIFczGd6SFY3kd3WdGJEbDMExWzbOVPaqMMdsTMHiVKEoDVQtK810afJoCL 2KqQPhXVp9DIQoXgA6KLEwJiD0HHNcLbVpHoZqDLWt E9Lnn112izBfflS8UX9WK8UsVNW2BQb4D4goJwNaJRUxNEQyIE5lCvI7NFOlYw7BkTprAVCvFKAsZd7Q lVf1HKG2UGAbSm5+Pj4+Rv1zosAzKveDXGJjXB2wkt16HA1MaGHqWU0UNUnvA61qEOcaBv47HKrmDARk OpEeOZe1Ui5zSoCis4ReK1GhTYr1R7zBPgmwG4NyDM phIC0aBGA5XRSvQf8+Mc3lWGZiPV75XUSuNXLTM0XwepCpnbYsLOs9JRGrHv7+Nf1uhzTsDilWCNMgZI 6cmd86UP8FCR4liWpzUkH4UBY7M33kgUZuV5pjDoPgA0GdfJomZABvTU0fK3MpENsmWVYfYD7yblNypA 2ZmSi7QSGmNw9OlFT5USLoW07pRUDvYCMITGYfd0Gf JS3Pv5sleyKlIZNzLF5OCHRhX6TRJ9ZhB1qtjBiyRHAlBE0CPVsozECiRKk1OV7GcVHqNKOkK94myL3f WR43AHy+GdY5tbEhbX7JaNwlm0OIVX987x1U6+PdZp9VmLyGDXVREMupKQZB5A0ZpDrBPFYAo9Lip7iu 7gwafAYd/OS/6523nG9pozt7ve0ydlx34l2K11by09 [file] Jose Elias/eWpCfAQnhvn/VxB2xnDiJWOFck1igw8oCE03pS [file] QONZvsPSXJXpi+INSTRUMENT LENS INSPECTOR/kITZPVigTjBYJf8bC3IbR8mGdIDMfkTMcjHjPmSN/8gQACvrdCRkv8CdYRMyNoB [file] COORDINATOR+s7ZnJ [file] experimental outboard motors mechanic/n6yPrj8LmCo7DLyD6eeoK5rrMzPWZkFpoSx9z9c8Dy+V8rHo/oSvPUvK3d4PL/Nt1vnpsMgH07y2 [file] automatic car wash attendant/dkM0kEo/HqMeo5+reIvBcUxLr4wh+w18zTbt4/I [file] R6nY/ZISyyD2kzzwT949f0r5Ms1i3evadW8g/automatic car wash attendant+Jm [file] DPSR6dJ9/g211n31A6ql/dairy lab technician/fJ+ZPXvmVc/shZxMflxRA12S+fcNFVeVnyDMpKJ4kFmmpz2g2i/Y0/zV [file] /vp software support+bpJqn4lmcp891NdPkb1IH3rUsLb1C72VmU9BiwK6s7UPHvoit8kqOPSe67cghSBeBYF4t9E3eOZH [file] precision machine operator+Z3gC65+GFe15AHU87nAK3C3YrAxsSitFSOtDlD [file] Restuarant Crew Worker+9x1Ht9ukmdz2O7TxqxHgwN8HwnCdRJ9tJDDfSCjuv8oq7XLt9opyPWuJzM97jzzwgkm98hYCHzEZG [file] VF10UNWpCY+6jnsajycOQzdd3oaUjujmIrUOj3vaGOHII5b8N5T9FpMIWvfWiQMK0y05hBX18Ot5+/automatic car wash attendant [file] ID Date Data Source [id number] 07/24/2020 12:00:00 AM EST [facility] Shukri Mejia MD Patient Name: DELL,HANNAH [facility] Date of : 1985[place] [address] Date of Exam: 07/24/2020#: Fax: [phone] EXAM: CT THORAX WITHOUT CONTRASTCLINICAL INFORMATION: Chronic cough.No comparison study.64 slice low dose helical CT scanning was obtained throughout the thoraxwithout intravenous contrast along with sagittal and coronalreconstructions.The lungs show no evidence of infiltrate, consolidation or suspiciousnodular opacity. There is some minimal biapical scarring and bibasilarscarring. No mediastinal or axillary adenopathy is seen. Heart is normalin size. There is no pleural or pericardial effusion. Thoracic aorta isnormal in caliber with no aneurysm. There are minor diffuse degenerativechanges of the spine. The visualized upper abdominal structures appeargrossly unremarkable.IMPRESSION:Essentially negative non-contrast CT of the chest.Accredited by the [employer] in [place].MERY Delarosa/Cayden you for referring LOIDA SHARPE to our office.Electronically Signed - NILSA GEORGE MD 07/24/20 18:57 Name Value Range Interpretation Code Description Data Vonda rce(s) Supporting Document(s) ID Date Data Source [id number] 01/01/2020 09:07:00 AM EDT MEDENT ([facility] Name Value Range Interpretation Code Description Data Vonda rce(s) Supporting Document(s) White Blood Count 5.7 10 4.0-10.0 Normal (applies to non-numeri c results) MEDENT ([facility] Red Blood Count 4.98 10 4.00-5.40 Normal (applies to non-numeric results) MEDENT ([facility] Hemoglobin 15.0 g/dL 12.0-15.5 Normal (applies to non-numeric resul ts) MEDENT ([facility] Hematocrit 45.8 % 36.0-47.0 Normal (applies to non-numeric resul ts) MEDENT ([facility] Mean Corpuscular Hemoglobin 30.1 pg 27.0-33.0 Norm al (applies to non-numeric results) MEDENT ([facility] ) Mean Corpuscular Volume 92.0 fl 80.0-96.0 Normal ( applies to non-numeric results) MEDENT ([facility] ) Mean Corpuscular HGB Conc 32.8 g/dL 32.0-36.5 Normal (applies to non-numeric results) MEDENT ([facility] ) Nucleated Red Blood Cell % 0.0 % 0-0 Normal (applies to n on-numeric results) MEDENT ([facility] Platelet Count, Automated 248 10 150-450 Normal (applies to non-numeric results) MEDENT ([facility] ) Red Cell Distribution Width 12.5 % 11.5-14.5 Norm al (applies to non-numeric results) MEDENT ([facility] ) ID Date Data Source [id number] 01/01/2020 09:07:00 AM EDT MEDENT ([facility], ) Name Value Range Interpretation Code Description Data Vonda rce(s) Supporting Document(s) White Blood Count 5.7 10 4.0-10.0 Normal (applies to non-numeri c results) MEDENT ([facility]) Red Blood Count 4.98 10 4.00-5.40 Normal (applies to non-numeric results) [facility]) Hemoglobin 15.0 g/dL 12.0-15.5 Normal (applies to non-numeric resul ts) [facility]) Mean Corpuscular Volume 92.0 fl 80.0-96.0 Normal ( applies to non-numeric results) [facility]) Hematocrit 45.8 % 36.0-47.0 Normal (applies to non-numeric resul ts) [facility]) Mean Corpuscular Hemoglobin 30.1 pg 27.0-33.0 Norm al (applies to non-numeric results) [facility] ([facility]) Mean Corpuscular HGB Conc 32.8 g/dL 32.0-36.5 Normal (applies to non-numeric results) [facility] ([facility]) Platelet Count, Automated 248 10 150-450 Normal (applies to non-numeric results) [facility] ([facility]) Red Cell Distribution Width 12.5 % 11.5-14.5 Norm al (applies to non-numeric results) [facility]) Nucleated Red Blood Cell % 0.0 % 0-0 Normal (applies to n on-numeric results) [facility]) ID Date Data Source [id number] 09/19/2019 09:25:00 AM EST [facility]) Name Value Range Interpretation Code Description Data Vonda rce(s) Supporting Document(s) Surgical pathology study Laboratory test result [facility]) FINAL DIAGNOSIS Sigmoid colon, polyp, polypectomy: Several reactive and hyperplastic crypts are noted with denuded overlying mucosa. A juvenile type polyp and inflammatory pseudopolyp are in the differential. No adenomatous change is noted. 09/20/2019 - 1516 CLINICAL DIAGNOSIS Abdominal pain, diarrhea, constipation 09/19/2019 - 1442 GROSS DIAGNOSIS Received in formalin labeled "sigmoid polyp" is a 0.4 x 0.3 x 0.3 cm. portion of polypoid mucosa. All in one. -SH 09/19/2019 - 1442 Signed Barney Reese MD 09/20/2019 1517 Procedure Social History Code Duration Value Status Description Data Source(s ) Smoking 11/21/2019 12:00:00 AM EDT Patient has never smoked co mpleted Patient has never smoked MEDENT ([facility]) Vital Signs ID Date Data Source UNK Name Value Range Interpretation Code Description Data Source(s) Body surface area Derived from formula 1.72 m2 1.72 m2 MEDENT ([facility]) Body weight 74.844 kg 74.844 kg MEDENT ([facility]) [place] body weight 100 [lb_av] 100 [lb_av] MEDEN T ([facility]) Body mass index (BMI) [Ratio] 32.2 kg/m2 32.2 k g/m2 [facility] ([facility]) Body weight 165.00 [lb_av] 165.00 [lb_av] MEDEN T ([facility]) Body height 60 [in_i] 60 [in_i] MEDENT ([facility]) 5'0" Oxygen saturation in Arterial blood by Pulse oximetry 97 % 97 % MEDENT ([facility] Body mass index (BMI) [Ratio] 34.3 kg/m2 34.3 k g/m2 MEDENT ([facility] [place] body weight 100 [lb_av] 100 [lb_av] MEDEN T ([facility] Body weight 170.00 [lb_av] 170.00 [lb_av] MEDEN T ([facility] Body height 59 [in_i] 59 [in_i] MEDENT ([facility] 4'11" Respiratory rate 14 /min 14 /min MEDENT ( [facility] Heart rate 80 /min 80 /min MEDENT ([facility] Body temperature 98.0 [degF] 98.0 [degF] MEDENT ([facility] Diastolic blood pressure 76 mm[Hg] 76 mm[Hg] MEDENT ([facility] Systolic blood pressure 122 mm[Hg] 122 mm[Hg] M EDENT ([facility] [place] body weight 100 [lb_av] 100 [lb_av] MEDEN T ([facility], ) Body mass index (BMI) [Ratio] 27.3 kg/m2 27.3 k g/m2 MEDENT ([facility], ) Body weight 140.00 [lb_av] 140.00 [lb_av] MEDEN T ([facility], ) Body height 60 [in_i] 60 [in_i] MEDENT ([facility]) 5'0" Respiratory rate 14 /min 14 /min MEDENT ( [facility]) Heart rate 82 /min 82 /min MEDENT ([facility]) Diastolic blood pressure 70 mm[Hg] 70 mm[Hg] MEDENT ([facility]) Systolic blood pressure 110 mm[Hg] 110 mm[Hg] M EDENT ([facility]) Oxygen saturation in Arterial blood by Pulse oximetry 97 % 97 % MEDENT ([facility] Body mass index (BMI) [Ratio] 33.7 kg/m2 33.7 k g/m2 MEDENT ([facility] [place] body weight 100 [lb_av] 100 [lb_av] MEDEN T ([facility] Body weight 167.00 [lb_av] 167.00 [lb_av] MEDEN T ([facility] Body height 59 [in_i] 59 [in_i] MEDENT ([facility] 4'11" Respiratory rate 12 /min 12 /min MEDENT ( [facility] Heart rate 76 /min 76 /min MEDENT ([facility] Body temperature 98.6 [degF] 98.6 [degF] MEDENT ([facility] Diastolic blood pressure 80 mm[Hg] 80 mm[Hg] MEDENT ([facility] Systolic blood pressure 120 mm[Hg] 120 mm[Hg] M EDENT ([facility] Oxygen saturation in Arterial blood by Pulse oximetry 98 % 98 % MEDENT ([facility] Body mass index (BMI) [Ratio] 32.1 kg/m2 32.1 k g/m2 MEDENT ([facility] [place] body weight 100 [lb_av] 100 [lb_av] MEDEN T ([facility] Body weight 159.00 [lb_av] 159.00 [lb_av] MEDEN T ([facility] Body height 59 [in_i] 59 [in_i] MEDENT ([facility] 4'11" Respiratory rate 16 /min 16 /min MEDENT ( [facility] Heart rate 80 /min 80 /min MEDENT ([facility] Body temperature 97.5 [degF] 97.5 [degF] MEDENT ([facility] Diastolic blood pressure 60 mm[Hg] 60 mm[Hg] MEDENT ([facility] Systolic blood pressure 120 mm[Hg] 120 mm[Hg] M EDENT ([facility] Oxygen saturation in Arterial blood by Pulse oximetry 96 % 96 % MEDENT ([facility] Body mass index (BMI) [Ratio] 31.7 kg/m2 31.7 k g/m2 MEDENT ([facility] Body weight 157.00 [lb_av] 157.00 [lb_av] MEDEN T ([facility] Body height 59 [in_i] 59 [in_i] MEDENT ([facility] 4'11" Respiratory rate 16 /min 16 /min MEDENT ( [facility] Heart rate 90 /min 90 /min MEDENT ([facility] Body temperature 97.9 [degF] 97.9 [degF] MEDENT ([facility] Diastolic blood pressure 84 mm[Hg] 84 mm[Hg] MEDENT ([facility] Systolic blood pressure 122 mm[Hg] 122 mm[Hg] M EDENT ([facility] Diastolic blood pressure 64 mm[Hg] 64 mm[Hg] eCW1 ([facility]) Systolic blood pressure 108 mm[Hg] 108 mm[Hg] e CW1 ([facility]) Body mass index (BMI) [Ratio] 31.65 kg/m2 31.65 kg/m2 eCW1 ([facility]) Body height 59.5 [in_i] 59.5 [in_i] eCW1 ([facility]) Body weight 159.4 [lb_av] 159.4 [lb_av] eCW1 [facility] Body surface area Derived from formula 1.67 m2 1.67 m2 [facility] ([facility]) Body weight 70.308 kg 70.308 kg [facility] ([facility]) [place] body weight 100 [lb_av] 100 [lb_av] MEDEN T ([facility]) Body mass index (BMI) [Ratio] 30.3 kg/m2 30.3 k g/m2 MEDENT ([facility]) Body weight 155.00 [lb_av] 155.00 [lb_av] MEDEN T ([facility]) Body height 60 [in_i] 60 [in_i] [facility] ([facility]) 5'0" Oxygen saturation in Arterial blood by Pulse oximetry 98 % 98 % [facility] ([facility] Body mass index (BMI) [Ratio] 31.5 kg/m2 31.5 k g/m2 MEDENT ([facility] Body weight 156.00 [lb_av] 156.00 [lb_av] MEDEN T ([facility] Body height 59 [in_i] 59 [in_i] MEDENT ([facility] 4'11" Respiratory rate 14 /min 14 /min MEDENT ( [facility] Heart rate 66 /min 66 /min MEDENT ([facility] Body temperature 98.4 [degF] 98.4 [degF] MEDENT ([facility] Diastolic blood pressure 74 mm[Hg] 74 mm[Hg] [facility] ([facility] Systolic blood pressure 116 mm[Hg] 116 mm[Hg] M EDENT ([facility] Body weight 72.122 kg 72.122 kg [facility] ([facility]) Body mass index (BMI) [Ratio] 31.0 kg/m2 31.0 k g/m2 [facility] ([facility]) Body weight 159.00 [lb_av] 159.00 [lb_av] [facility] ([facility]) Body height 60 [in_i] 60 [in_i] [facility] ([facility]) 5'0" Body temperature 97.2 [degF] 97.2 [degF] [facility] ([facility]) Oxygen saturation in Arterial blood by Pulse oximetry 98 % 98 % [facility] ([facility]) Heart rate 74 /min 74 /min [facility] ([facility]) Diastolic blood pressure 70 mm[Hg] 70 mm[Hg] [facility] ([facility]) Systolic blood pressure 116 mm[Hg] 116 mm[Hg] [facility] Diastolic blood pressure 68 mm[Hg] 68 mm[Hg] eCW1 ([facility]) Systolic blood pressure 116 mm[Hg] 116 mm[Hg] e CW1 ([facility]) Body mass index (BMI) [Ratio] 31.65 kg/m2 31.65 kg/m2 eCW1 ([facility]) Body height 59.5 [in_us] 59.5 [in_us] eCW1 ([facility]) Body weight Measured 159.4 [lb_av] 159.4 [lb_av ] W1 ([facility]) Body weight 70.818 kg 70.818 kg [facility] ([facility]) Body mass index (BMI) [Ratio] 30.5 kg/m2 30.5 k g/m2 [facility] ([facility]) Body weight 156.12 [lb_av] 156.12 [lb_av] [facility] ([facility], ) Body height 60 [in_i] 60 [in_i] [facility] 5'0" Oxygen saturation in Arterial blood by Pulse oximetry 98 % 98 % [facility] ([facility]) Heart rate 74 /min 74 /min [facility] Diastolic blood pressure 74 mm[Hg] 74 mm[Hg] MEDENT ([facility]) Systolic blood pressure 116 mm[Hg] 116 mm[Hg] M EDENT ([facility]) Diastolic blood pressure 60 mm[Hg] 60 mm[Hg] eCW1 ([facility]) Systolic blood pressure 120 mm[Hg] 120 mm[Hg] e CW1 ([facility]) Body mass index (BMI) [Ratio] 30.78 kg/m2 30.78 kg/m2 eCW1 ([facility]) Body height 59.5 [in_us] 59.5 [in_us] eCW1 ([facility]) Body weight Measured 155 [lb_av] 155 [lb_av] eC W1 ([facility]) Oxygen saturation in Arterial blood by Pulse oximetry 96 % 96 % MEDLEFTY ([facility] Body mass index (BMI) [Ratio] 31.7 kg/m2 31.7 k g/m2 MEDENT ([facility] Body weight 157.00 [lb_av] 157.00 [lb_av] MEDEN T ([facility] Body height 59 [in_i] 59 [in_i] MEDENT ([facility] 4'11" Respiratory rate 14 /min 14 /min MEDENT ( [facility] Heart rate 80 /min 80 /min MED[facility] ([facility] Body temperature 98.0 [degF] 98.0 [degF] MEDENT ([facility] Diastolic blood pressure 84 mm[Hg] 84 mm[Hg] MEDENT ([facility] Systolic blood pressure 118 mm[Hg] 118 mm[Hg] M EDENT ([facility] Body mass index (BMI) [Ratio] 31.1 kg/m2 31.1 k g/m2 [facility] ([facility] Heart rate 78 /min 78 /min MED[facility] ([facility] Diastolic blood pressure 78 mm[Hg] 78 mm[Hg] [facility] ([facility] Systolic blood pressure 118 mm[Hg] 118 mm[Hg] M EDENT ([facility] Body weight 154.00 [lb_av] 154.00 [lb_av] MEDEN T ([facility] Body height 59 [in_i] 59 [in_i] MED[facility] ([facility] 4'11" Body weight 70.762 kg 70.762 kg [facility] ([facility], ) Body mass index (BMI) [Ratio] 30.5 kg/m2 30.5 k g/m2 [facility] ([facility]) Body weight 156.00 [lb_av] 156.00 [lb_av] [facility] ([facility]) Body height 60 [in_i] 60 [in_i] [facility] ([facility]) 5'0" Diastolic blood pressure 73 mm[Hg] 73 mm[Hg] [facility] ([facility]) Systolic blood pressure 107 mm[Hg] 107 mm[Hg] [facility]
[2020-09-01] MEDS ORDERED: SCOPOLAMINE 1MG TRANSDERMAL PATCH TOP ONE (08:30)
[2020-09-01] MEDS ORDERED: LIDOCAINE 2% 100MG/5ML SDV (FOR ANES.) As Ordered ONE (08:46)
[2020-09-01] MEDS ORDERED: dexameTHASONE 4 MG/ML 1ML VIAL (J1100 PER 1MG) As Ordered ONE (08:46)
[2020-09-01] MEDS ORDERED: propofoL 200 MG/20 ML VIAL As Ordered ONE (08:46)
[2020-09-01] MEDS ORDERED: ROCURONIUM BROMIDE 50 MG/5 ML VIAL As Ordered ONE (08:46)
[2020-09-01] MEDS ORDERED: SUCCINYLCHOLINE 100 MG/5 ML SYRINGE (J0330) As Ordered ONE (08:46)
[2020-09-01] MEDS ORDERED: ONDANSETRON 4MG/2ML VIAL As Ordered ONE (08:46)
[2020-09-01] MEDS ORDERED: MIDAZOLAM INJ 2MG/2ML VIAL (J2250 PER 1MG) As Ordered ONE (08:49)
[2020-09-01] MEDS ORDERED: fentaNYL 100 MCG/2 ML INJECTION (J3010) As Ordered ONE (08:49)
[2020-09-01] MEDS ORDERED: METHYLENE BLUE 0.5% (5MG/ML) 10 ML AMP (PROVAYBLUE) As Ordered ONE (09:21)
[2020-09-01] MEDS ORDERED: LIDOCAINE W/EPINEPHRINE 1% 20ML VIAL As Ordered ONE (09:21)
[2020-09-01] MEDS ORDERED: EPINEPHrine 1MG/ML INJ 30ML MD-VIAL As Ordered ONE (09:21)
[2020-09-01] MEDS ORDERED: LACRILUBE (AKWA TEARS) OPHTH OINT 3.5 GM As Ordered ONE (09:23)
[2020-09-01] MEDS ORDERED: SUGAMMADEX SODIUM 500 MG/5 ML VIAL (BRIDION) As Ordered ONE (10:08)
[2020-09-01] MEDS ORDERED: ONDANSETRON 4MG/2ML VIAL IV PRN ×2 (10:45→12:45)
[2020-09-01] MEDS ORDERED: ACETAMINOPH W/CODEINE #3 TAB UD PO PRN (10:45)
[2020-09-01] MEDS ORDERED: oxyCODONE 5MG TAB PO PRN ×2 (10:45→12:45)
[2020-09-01] MEDS ORDERED: LR 1,000 ML IV SCH (10:45)
[2020-09-01] MEDS ORDERED: fentaNYL 100 MCG/2 ML INJECTION (J3010) IV PRN (10:45)
[2020-09-01] MEDS ORDERED: MEPERIDINE INJ 25 MG/ML VIAL (J2175) IV PRN (10:45)
[2020-09-01] MEDS ORDERED: METOCLOPRAMIDE INJ 10MG/2ML VIAL (J2765 PER 1) IV PRN (10:45)
--- NOTE | 2020-09-01 11:19 | RO ---
OPERATIVE NOTE DATE OF OPERATION: 09/01/2020 PREOPERATIVE DIAGNOSIS: Deviated septum, chronic rhinitis. POSTOPERATIVE DIAGNOSIS: Deviated septum, chronic rhinitis. PROCEDURE: Septoplasty, bilateral turbinectomy. SURGEON: Frantz Archibald MD SUSTAINABILITY PURCHASING AGENT: ANESTHESIA: DESCRIPTION OF PROCEDURE: Under general anesthesia with the patient intubated, the patient was draped in the usual manner. I used pledgets of Adrenalin 1:1000 and infiltrated with Lidocaine and Epinephrine. I made an incision on the septum of the left side, elevated subperichondrial and periosteal plane. I elevated the tissues off the ethmoid plate and maxillary crest. I divided the quadrangular cartilage from the maxillary crest and ethmoid plate and removed portions of both maxillary crest and ethmoid plate which were deviated. Once this was done the septum was straight. I closed that incision with 4-0 chromic. I made an incision anterior to inferior turbinates on both sides, elevated submucosal plane and used micro debrider to remove portion of jennifer on both sides. The patient tolerated the procedure well. I closed that wound with 4-0 chromic. Less than 20 mL of estimated blood loss. The patient tolerated the procedure well and was extubated and transferred to the recovery room in excellent condition.
[2020-09-01 13:48] VITALS: BP 127/67
== END 2020-09-01 13:48 | disposition home or self-care (01) ==
LOC: M SDC 07:32
PROVIDERS: ATTEND Otolaryngology
DX: J34.2 Deviated nasal septum (principal); J31.0 Chronic rhinitis; K21.9 Gastro-esophageal reflux disease without esophagitis; M79.7 Fibromyalgia; K58.8 Other irritable bowel syndrome; J45.909 Unspecified asthma, uncomplicated; Z79.899 Other long term (current) drug therapy; Z88.8 Allergy status to other drugs, medicaments and biological substances
CPT/HCPCS: 30140; 30520; 81025; 88305; J0330; J1100; J2250; J2405; J3010; Q9968

== ENCOUNTER → 2020-09-14 | Outpatient (CLI) | payer BC ==
[~2020-09-14] MED LIST changes: -LR 1,000 ML IV ONE
[2020-09-17 13:07] LABS: ENDOMYSIAL ABY IgA Negative (Negative); F002-IgE Milk < 0.10 kU/L (Class 0); F004-IgE Wheat < 0.10 kU/L (Class 0); F013-IgE Peanut < 0.10 kU/L (Class 0); F014-IgE Soybean < 0.10 kU/L (Class 0); F026-IgE Pork < 0.10 kU/L (Class 0); F027-IgE Beef < 0.10 kU/L (Class 0); F245-IgE Egg, Whole < 0.10 kU/L (Class 0); FX02-IgE Food Mix (Sea Foods) Negative (.); TISSUE TRANSGLUTAMINASE IgA <2 U/mL (0-3); TISSUE TRANSGLUTAMINASE IgG 6 U/mL (0-5)
== END ==
LOC: M WUC 14:23
PROVIDERS: ATTEND Nurse Practitioner Adult Health
DX: R19.7 Diarrhea, unspecified (principal); K21.9 Gastro-esophageal reflux disease without esophagitis

== ENCOUNTER → 2020-09-15 | Outpatient (REF) | payer BC ==
[2020-09-22 12:08] LABS: FATS NEUTRAL Normal (.); FATS TOTAL Normal (.)
== END ==
LOC: M LAB REF 15:36
PROVIDERS: ATTEND Nurse Practitioner Adult Health
DX: R19.7 Diarrhea, unspecified (principal); K21.9 Gastro-esophageal reflux disease without esophagitis

== ENCOUNTER → 2021-01-20 | Outpatient (CLI) | payer BC ==
[~2021-01-20] MED LIST changes: -ACET-838 PO; +ACET32TAB PO
--- NOTE | 2021-01-20 11:19 | REP ---
INDICATION: EARLY SATIETY. COMPARISON: None. TECHNIQUE/RADIOTRACER AND DOSE: Following the intravenous administration of 1.02 mCi technetium 99 M sulfur colloid in 2 scrambled eggs and 1 oz of water, multiple images of the upper abdomen are performed in the anterior and posterior projections for 90 minutes. FINDINGS: The gastric activity is measured. At the end of 90 minutes 48% of the ingested activity has emptied from the stomach. The T1/2 is 85 minutes which is normal. IMPRESSION: Normal gastric emptying time. <Electronically signed by Juancho Brooks > 01/20/21 1112
== END ==
LOC: M RAD 08:05
PROVIDERS: ATTEND Nurse Practitioner Family
DX: R10.9 Unspecified abdominal pain (principal); K21.9 Gastro-esophageal reflux disease without esophagitis; K44.9 Diaphragmatic hernia without obstruction or gangrene; R14.0 Abdominal distension (gaseous); R68.81 Early satiety; R19.7 Diarrhea, unspecified

== ENCOUNTER → 2021-04-14 | Outpatient (CLI) | payer BC ==
[~2021-04-14] MED LIST changes: -DOXY100C37; +DOXY1CAP62
== END ==
LOC: M WUC 11:35
PROVIDERS: ATTEND Nurse Practitioner Family
DX: K21.9 Gastro-esophageal reflux disease without esophagitis (principal); K44.9 Diaphragmatic hernia without obstruction or gangrene; R14.0 Abdominal distension (gaseous); R68.81 Early satiety; R19.7 Diarrhea, unspecified; R10.9 Unspecified abdominal pain

== ENCOUNTER → 2021-11-20 | Outpatient (CLI) | payer OTHER ==
[~2021-11-20] MED LIST changes: -CYMB60CA3 PO; +CYMB60CA4 PO; +DOXY-443; -DOXY1CAP62
== END ==
LOC: M LABSMTC 09:57
DX: Z01.812 Encounter for preprocedural laboratory examination (principal); Z20.822 Contact with and (suspected) exposure to COVID-19

== ENCOUNTER → 2021-12-11 | Outpatient (CLI) | payer OTHER | LOC: M LABSMTC 09:56 | DX: Z01.812 Encounter for preprocedural laboratory examination (principal); Z20.822 Contact with and (suspected) exposure to COVID-19 ==

== ENCOUNTER → 2022-04-13 | Outpatient (REF) | payer OTHER | LOC: M LAB REF 12:51 | PROVIDERS: ATTEND Internal Medicine Gastroenterology | DX: R10.9 Unspecified abdominal pain (principal) ==

== ENCOUNTER → 2023-06-09 | Outpatient (CLI) | payer OTHER ==
[~2023-06-09] MED LIST changes: +DICY-61 PO; -DICY10CA13 PO
== END ==
LOC: M RAD 09:58
PROVIDERS: ATTEND Surgery
DX: Z98.890 Other specified postprocedural states (principal); Z87.19 Personal history of other diseases of the digestive system
CPT/HCPCS: 78264; A9541

== ENCOUNTER → 2023-06-26 | Outpatient (CLI) | payer OTHER ==
[~2023-06-26] MED LIST changes: +E-Z-GAS II EFFERVESCENT PACKET (SODIUM BICARB./CITRIC ACID/SIMETHICONE) As Ordered ONE; +E-Z-HD 98% w/w 340GM SUSP BTL As Ordered ONE; +E-Z-PAQUE 96% w/w SUSP 176GM BTL As Ordered ONE
== END ==
LOC: M RAD 08:23
PROVIDERS: ATTEND Surgery
DX: Z98.890 Other specified postprocedural states (principal); Z87.19 Personal history of other diseases of the digestive system

== ENCOUNTER → 2023-06-26 | Outpatient (CLI) | payer OTHER ==
[~2023-06-26] MED LIST changes: -E-Z-GAS II EFFERVESCENT PACKET (SODIUM BICARB./CITRIC ACID/SIMETHICONE) As Ordered ONE; -E-Z-HD 98% w/w 340GM SUSP BTL As Ordered ONE; -E-Z-PAQUE 96% w/w SUSP 176GM BTL As Ordered ONE
[2023-06-26 09:42] LABS: BASO % 0.7 % (0.0-1.0); EOS # 0.2 10^3/uL (0.0-0.5); EOS % 3.4 % (0.0-3.0); HEMATOCRIT 45.3 % (36.0-47.0); HEMOGLOBIN 14.9 g/dl (12.0-15.5); LYMPH # 1.1 10^3/uL (1.5-5.0); MEAN CORPUSCULAR HEMOGLOBIN 30.3 pg (27.0-33.0); MEAN CORPUSCULAR HGB CONC 32.9 g/dl (32.0-36.5); MEAN CORPUSCULAR VOLUME 92.1 fl (80.0-96.0); MONO # 0.5 10^3/uL (0.0-0.8); MONO % 7.9 % (2.0-8.0); NEUTROPHILS # 4.1 10^3/uL (1.5-8.5); NEUTROPHILS % 68.8 % (36.0-66.0); PLATELET COUNT, AUTOMATED 254 10^3/uL (150-450); RED BLOOD COUNT 4.92 10^6/uL (4.00-5.40)
[2023-06-26 09:49] LABS: ERYTHROCYTE SEDIMENTATION RATE 45 mm/hr (0-20)
[2023-06-26 10:26] LABS: C REACTIVE PROTEIN QUANTITATIV < 0.40 MG/DL (<1.0)
[2023-06-26 10:28] LABS: ALBUMIN 3.9 G/DL (3.2-5.2); ALKALINE PHOSPHATASE 77 U/L (46-116); ALT/SGPT 19 U/L (7.0-40); AST/SGOT 11 U/L (<34); BILIRUBIN,DIRECT 0.1 MG/DL (<0.4); BILIRUBIN,TOTAL 0.4 MG/DL (0.3-1.2); BLOOD UREA NITROGEN 11 MG/DL (9-23); CALCIUM LEVEL 8.8 MG/DL (8.5-10.1); CARBON DIOXIDE LEVEL 25 MMOL/L (20-31); CHLORIDE LEVEL 107 MMOL/L (98-107); CREATININE FOR GFR 0.77 MG/DL (0.55-1.30); GLOMERULAR FILTRATION RATE > 60.0 (>60); GLUCOSE, FASTING 92 MG/DL (60-100); SODIUM LEVEL 142 MMOL/L (136-145); THYROID STIMULATING HORMONE 3.227 uIU/ML (0.55-4.78); TOTAL 25(OH) VITAMIN D 22.9 NG/ML (20.0-100.0); TOTAL PROTEIN 7.1 G/DL (5.7-8.2)
[2023-06-26 10:46] LABS: VITAMIN B12 LEVEL 253 PG/ML (211-911)
== END ==
LOC: M LAB 08:28
PROVIDERS: ATTEND Nurse Practitioner
DX: R19.7 Diarrhea, unspecified (principal)

== ENCOUNTER → 2023-07-08 | Outpatient (REF) | payer OTHER | LOC: M LAB REF 11:53 | PROVIDERS: ATTEND Nurse Practitioner | DX: R19.7 Diarrhea, unspecified (principal) ==

== ENCOUNTER → 2023-07-26 | Outpatient (CLI) | payer OTHER | LOC: M RAD 10:22 | PROVIDERS: ATTEND Surgery | DX: K22.70 Barrett's esophagus without dysplasia (principal) ==

== ENCOUNTER 2025-02-19 20:00 | Outpatient (CLI) | payer OTHER ==
[~2025-02-19 20:00] MED LIST changes: +DOXY-441; -DOXY-443; -HYOS0.1258 PO; +HYOS0.1297 PO; +ONDA-282 PO; -ONDA4TAB6 PO
== END 2025-02-20 14:46 ==
LOC: M SLEEP 20:00
PROVIDERS: ATTEND Physician Assistant
DX: G47.10 Hypersomnia, unspecified (principal); G47.00 Insomnia, unspecified; R40.0 Somnolence